=== PATIENT | female | born 1950 | race Caucasian/White ===

== ENCOUNTER → 2017-11-18 | Outpatient (CLI) | payer OTHER, MEDICAID ==
[~2017-11-18] MED LIST: AMITRIPTYLINE H25 M4 PO; BENICAR HCT 401 EAC1 PO; CEFTIN 250 MG250 MG PO; CELEBREX 200 M200 MG PO; CELEBREX PO; COUMADIN 2 MG TA2 M1 PO; COUMADIN 4 MG TA4 M1 PO; COUMADIN 5 MG TA5 M1 PO; COUMADIN PO; COZAAR 25 MG TA25 M1 PO; CYCLOBENZAPRINE10 MG PO; FLEXERIL PO; GABAPENTIN100 MG PO; HYDROCHLOROTHIA25 M1 PO; HYDROCHLOROTHIAZIDE PO; HYDROCODON-ACE1 EAC5 PO; IMITREX; IRON325 PO; LEVOTHYROXINE0.05 MG PO; LISINOPRIL10 MG PO; LOPRESSOR 50 MG50 M1 PO; LYRICA150 MG PO; METOPROLOL PO; METOPROLOL SUCC50 MG PO; MOBIC7.5 M1 PO; NABUMETONE 500500 M1 PO; NORCO 10-325 T1 EACH PO; PERCOCET 10-321 EACH PO; PRAVACHOL40 MG PO; PRILOSEC 20 MG20 MG PO; PROVENTIL HFA6.7 G1 INH; TIROSINT100 MCG PO; ZOLOFT100 MG PO
--- NOTE | 2017-11-20 08:15 | PAINCON ---
[address] [address] PAIN MANAGEMENT CONSULTATION Name: ELINOR GUNDERSON [facility] [id number] Admission: 11/18/17 Attend Phys: Davonte Martinez Discharge: Date of : 48 Report #: [id number] THIS REPORT FOR: //name// CC: Jose Rojo The patient is a pleasant 67-year-old female being treated for symptomatic lumbar radiculopathy secondary to spinal stenosis. She has done well with occasional epidural injections, she had a left L4-L5 transforaminal epidural injection at last visit with significant improvement of baseline pain. With ongoing radicular symptoms, I was concerned that there may be some surgical pathology, I ordered an MRI at last visit, unfortunately she wanted an open MRI and the copay of $360 was outside of the patient's comfort zone. We will try and get the MRI approved at [facility] where it should be covered a little better. PHYSICAL EXAMINATION: Shows a 5 feet 6 inches, 215 pounds female, BMI is 34.8 kg/m2. Blood pressure 150/70, pulse 72, respirations are 18. Rises from chair using armrest. She still has an antalgic gait, left leg L4 pattern with slight weakness to hip flexion and extension. ASSESSMENT: Symptomatic lumbar radiculopathy secondary to spinal stenosis. RECOMMENDATIONS: 1. Left L4-L5 transforaminal epidural injection today. 2. MRI of the lumbar spine. 3. Follow up with Neurosurgery. The patient was given contact information for same. PROCEDURE: Transforaminal epidural injection under fluoroscopy. PROCEDURE NOTE: After both written and informed consent was obtained including risk of spinal cord damage, infection, increased pain and paralysis, the patient agreed to proceed. The patient was taken to the fluoroscopy suite, placed in a prone position with appropriate abdominal bolstering. After sterile prep with ChloraPrep and sterile drape, a skin wheal with 1% Xylocaine was raised. A 22 gauge 4-1/2 inch epidural Tuohy needle was inserted. From an oblique approach into the posterior-superior aspect of the left L4-L5 neural foramen with continuous pressure on the glass syringe plunger for loss of resistance. Glass syringe was filled with 2 cc of 0.1 Xylocaine. The glass loss of resistance syringe was removed. A low volume extension tubing was connected, negative aspiration was accomplished for cerebrospinal fluid or blood. 1 mL of Omnipaque was injected which showed spread both within the epidural space and laterally along the nerve root. This was followed with 80 mg of triamcinolone plus 1 mL of 1.5% preservative-free Xylocaine. Needle was partially withdrawn, 0.5 mL of Xylocaine was injected to clear the needle and [place] [address] PAIN MANAGEMENT CONSULTATION Name: NEPTALIELINOR Panchito [facility] [id number] Admission: 11/18/17 Attend Phys: Davonte Martinez Discharge: Date of : 48 Report #: [id number] was cleansed, band-aid was applied. The patient was allowed to ambulate to the recovery room, discharged in good and stable condition. <ELECTRONICALLY SIGNED> By: Jeremias Rojo DO 11/20/17 0815 0844 1030[facility]gomerynakul Rojo DO /nt
== END | disposition home or self-care (01) ==
LOC: M.PC 02:06
DX: M48.061 Spinal stenosis, lumbar region without neurogenic claudication (principal); G89.29 Other chronic pain; Z98.890 Other specified postprocedural states; Z88.8 Allergy status to other drugs, medicaments and biological substances; Z79.891 Long term (current) use of opiate analgesic; Z79.899 Other long term (current) drug therapy

== ENCOUNTER → 2017-12-10 | Outpatient (CLI) | payer OTHER, MEDICAID | LOC: M.MRI 12-07 14:30 | DX: M54.16 Radiculopathy, lumbar region (principal); M51.35 Other intervertebral disc degeneration, thoracolumbar region; M51.26 Other intervertebral disc displacement, lumbar region; M47.897 Other spondylosis, lumbosacral region; M41.86 Other forms of scoliosis, lumbar region ==

== ENCOUNTER → 2018-01-20 | Outpatient (CLI) | payer OTHER, MEDICAID ==
--- NOTE | 2018-01-27 07:59 | PAINCON ---
[facility] [address] [place] [address] PAIN MANAGEMENT CONSULTATION Name: ELINOR GUNDERSON Room: [facility] SHADI Santos#: [id number] Admission: 01/20/18 Attend Phys: Davonte Martinez Discharge: Date of : 48 Report #: [id number] THIS REPORT FOR: //name// CC: Jose Rojo HISTORY OF PRESENT ILLNESS: The patient is a 67-year-old female, prior seen in the pain clinic on 11/18/2017. We did a left L4-L5 transforaminal epidural injection. The patient returns to clinic today noting that injection afforded some 60-70% relief for several weeks, pain has gradually begun to recur. She prior had a decompressive back surgery with Dr. Garcia. With ongoing pain in the left L3 radicular pattern, I did order an MRI of the lumbar spine. This was accomplished on 12/10/2017. I reviewed this with the patient today. Findings were compared to the prior 02/05/2015 study. It does note scoliosis with apex at L3-L4. L3-L4 does note kdfkildx-ic-xzcgep left L3 neural foraminal narrowing. L4-L5 notes a prior right L4 micro laminectomy. There is severe narrowing in the right lateral recess, ewaeruxx-rv-zfujfa bilateral neural foraminal narrowing at L4, though this does not correlate with significant L4 radicular symptoms. L5-S1 does show moderate facet arthropathy. ASSESSMENT: Symptomatic lumbar radiculopathy status post decompressive laminectomy. RECOMMENDATION: 1. We did discuss therapeutic options at length today. We will request authorization for a left L3-L4 transforaminal epidural injection today, again hoping to provide some incremental and only transient relief of symptoms. 2. We will have the patient follow up with Dr. Garcia at [facility] for consideration for further decompression at L3-L4. If she is not considered a surgical candidate, we did discuss spinal cord stimulator as possible therapeutic option. Fortunately, she has preserved strength, simply pain in L3 pattern, pain radiating to the left thigh. I think she would be an excellent candidate for spinal cord stimulator if surgery is not an option. We talked about high frequency stimulation with negligible paresthesia. We talked about risks, benefits, and possible therapeutic modality. 3. Follow up next week if we can get authorization for DESHAWN (Transforaminal @ L3/4) ASSESSMENT: Symptomatic lumbar radiculopathy status post decompressive laminectomy, spinal stenosis, neuropathic pain. <ELECTRONICALLY SIGNED> By: Jeremias Rojo DO 01/27/18 0759 1346 2048Jeremias Rojo DO /nt
== END ==
LOC: M.PC 04:56
DX: M54.16 Radiculopathy, lumbar region (principal)

== ENCOUNTER → 2018-01-27 | Outpatient (CLI) | payer OTHER, MEDICAID ==
--- NOTE | 2018-01-28 09:41 | PAINCON ---
[address] [address] PAIN MANAGEMENT CONSULTATION Name: ELINOR GUNDERSON [facility] [id number] Admission: 01/27/18 Attend Phys: Davonte Martinez Discharge: Date of : 48 Report #: [id number] THIS REPORT FOR: //name// CC: Jose Rojo The patient is a 67-year-old female being treated for lumbar radiculopathy status post decompressive laminectomy, ongoing neuropathic pain, left L3 pattern. She was seen on 01/20/2018. We sought authorization for left L3-L4 transforaminal epidural injection. I did review her MRI today. She has a scoliotic curve with apex at L3-L4 towards the right, significantly narrowing the L3-L4 neural foramen. ASSESSMENT: Symptomatic lumbar radiculopathy, status post decompressive laminectomy. PROCEDURE: Left L3-L4 transforaminal epidural injection under fluoroscopy. PROCEDURE NOTE: After both written and informed consent was obtained including risk of spinal cord damage, infection, increased pain and paralysis, the patient agreed to proceed. The patient was taken to the fluoroscopy suite, placed in a prone position with appropriate abdominal bolstering. After sterile prep with ChloraPrep and sterile drape, a skin wheal with 1% Xylocaine was raised. A 22 gauge 4-1/2 inch epidural Tuohy needle was inserted. From an oblique approach into the posterior-superior aspect of the left L3-L4 neural foramen with continuous pressure on the glass syringe plunger for loss of resistance. Glass syringe was filled with 2 cc of 0.1 Xylocaine. The glass loss of resistance syringe was removed. A low volume extension tubing was connected, negative aspiration was accomplished for cerebrospinal fluid or blood. 1 mL of Omnipaque was injected which showed spread both within the epidural space and laterally along the nerve root. This was followed with 80 mg of triamcinolone plus 1 mL of 1.5% preservative-free Xylocaine. Needle was partially withdrawn, 0.5 mL of Xylocaine was injected to clear the needle and the needle was removed. The area was cleansed, band-aid was applied. The patient was allowed to ambulate to the recovery room, discharged in good and stable condition. <ELECTRONICALLY SIGNED> By: Jeremias Rojo DO 01/28/18 0941 1230 1448Jeremias Rojo DO /nt
== END | disposition home or self-care (01) ==
LOC: M.PC 01:48
DX: M54.16 Radiculopathy, lumbar region (principal); Z98.890 Other specified postprocedural states; G89.29 Other chronic pain

== ENCOUNTER → 2018-05-12 | Outpatient (CLI) | payer OTHER, MEDICAID ==
--- NOTE | 2018-05-13 07:27 | PAINCON ---
[facility] [address] [place] [address] PAIN MANAGEMENT CONSULTATION Name: ELINOR GUNDERSON Room: [facility] SHADI Santos#: [id number] Admission: 05/12/18 Attend Phys: Davonte Martinez Discharge: Date of : 48 Report #: [id number] THIS REPORT FOR: //name// CC: Jose Rojo HISTORY OF PRESENT ILLNESS: The patient is a 67-year-old female, prior seen in the pain clinic in November and January of this year given left transforaminal epidural injections with ongoing improvement of baseline pain. The patient is tentatively scheduled to see Dr. Garcia for consideration for decompressive lumbar laminectomy. Unfortunately, in the interval, she went to the [facility], got bitten by a tick. Became quite systemically ill. She was diagnosed with Lyme disease. Had a 30-day course of antibiotics (dicyclomine (?)) ending 04/19/2018. She notes that the blood studies by verbal report showed no evidence of rickettsial disease. He returns to the Pain Clinic today noting radicular symptoms have recurred without antecedent trauma and overuse. Pain is in the low back bilateral, left slightly greater than right. Pain is radiating into the groin. She has decreased hip flexion strength. Positive straight leg raise bilaterally. ASSESSMENT: Symptomatic lumbar radiculopathy by clinical exam and history. The patient's MRI from November this year notes prior laminectomy at L4 (right microlaminectomy), goqifngc-mq-mvxjfv left neural foraminal narrowing at L3-L4. RECOMMENDATIONS: Lumbar epidural injection under fluoroscopy midline. Follow up with Neurosurgery (Dr. Garcia at [facility]). Follow up simply as needed with the Pain Clinic. PROCEDURE NOTE PROCEDURE: Lumbar epidural injection under fluoroscopy. DESCRIPTION OF PROCEDURE NOTE: After both written and informed consent to include risk of spinal cord damage, increased pain, weakness and dural puncture, the patient was taken to the fluoroscopy suite, placed in the prone position. After sterile prep and drape, a skin wheal with lidocaine was raised. A 22-gauge epidural Tuohy needle was inserted in the midline at L3-L4 with good loss to resistance. Negative aspiration for cerebrospinal fluid or blood was noted. Then 1 mL of Omnipaque under biplanar fluoroscopy showed good spread within the epidural space. This was followed with 80 mg of triamcinolone plus 1 mL of 1.5% preservative-free Xylocaine, 0.5 mL Xylocaine [place] [address] PAIN MANAGEMENT CONSULTATION Name: NEPTALIELINOR A Room: [facility] Tmo#: [id number] Admission: 05/12/18 Attend Phys: Davonte Martinez Discharge: Date of : 48 Report #: [id number] flush the needle; it was removed. The patient was monitored for an appropriate period of time and discharged in good and stable condition. <ELECTRONICALLY SIGNED> By: Jeremias Rojo DO 05/13/18 0727 1258 [facility] Hospitalnakul Rojo DO /nt
== END | disposition home or self-care (01) ==
LOC: M.PC 05:03
DX: M54.16 Radiculopathy, lumbar region (principal); G89.29 Other chronic pain; M48.061 Spinal stenosis, lumbar region without neurogenic claudication; Z98.890 Other specified postprocedural states; Z88.8 Allergy status to other drugs, medicaments and biological substances; Z79.899 Other long term (current) drug therapy; Z79.891 Long term (current) use of opiate analgesic

== ENCOUNTER → 2018-07-08 | Outpatient (CLI) | payer OTHER, MEDICAID ==
--- NOTE | 2018-07-14 16:41 | PAINCON ---
[address] [address] PAIN MANAGEMENT CONSULTATION Name: ELINOR GUNDERSON [facility] [id number] Admission: 07/08/18 Attend Phys: Claire Garay MD Discharge: Date of : 48 Report #: [id number] THIS REPORT FOR: //name// CC: Claire Persaud DATE OF SERVICE: 07/08/2018 CHIEF COMPLAINT: Pain in the low back area as well as in the joints and left hip. HISTORY OF PRESENT ILLNESS: The patient is a 68-year-old female who has been followed in the pain clinic by Dr. Jeremias Rojo. She has undergone epidural steroid injections because of pain and discomfort with lumbar radicular symptoms in the past. She has gleaned significant benefits from these. She has returned today and would like to proceed with another lumbar epidural steroid injection. She has had no complications from them in the past. Rates her pain as a 5/10. Finds that the oxycodone, ibuprofen, Flexeril and Lyrica are helpful. She has undergone epidural steroid injections without complications in the past, last one was performed in April 2018. The patient states that she is having pain that radiates into both legs. The pain is in the L5-S1 dermatomal distribution principally on the left today. She has had a laminectomy at L4 in the past. There have been some findings of some zllcvxee-ip-bzktdq neural foraminal narrowing at that level. ALLERGIES: NORGESIC FORTE, DURAVENT DA, AMOXICILLIN, CHLORPHENIRAMINE, DICLOFENAC, AUGMENTIN, LORACARBEF, LEVAQUIN, AND MICARDIS. CURRENT MEDICATIONS: Flexeril 10 mg, Synthroid 0.05 mg, Zestril 10 mg b.i.d., metoprolol 50 mg b.i.d., Prilosec 20 mg, Percocet 10/325 q. 4-6 hours, Lyrica 150 mg b.i.d., Zoloft 100 mg. PAST MEDICAL HISTORY: Asthma, hypertension, hypoglycemia, blood clot, coronary artery disease, myocardial infarct in 2008, DVT in 2002, scarlet fever, thyroid disease, stomach problems, peptic ulcer disease. PAST SURGICAL HISTORY: Stomach surgery in 2002, cholecystectomy in 1978, hysterectomy in 1970, sinus surgery in 1999, tonsils as a child. SOCIAL HISTORY: The patient used to work as a data operations manager. LABORATORY DATA: No new laboratory values are available. Last MRI dated 03/30/2014. 1. Asymmetric bulging of L2-L3, greater on the right with mild inferior neural foraminal narrowing seen. 2. Gfqo-kq-xevoomnf bulging of L3-L4 seen posterior spurring[place] [address] PAIN MANAGEMENT CONSULTATION Name: ELINOR GUNDERSON Panchito [facility] [id number] Admission: 07/08/18 Attend Phys: Claire Garay MD Discharge: Date of : 48 Report #: [id number] of the canal is borderline with bilateral neural foraminal narrowing, greater on the left with lateral spurring. 3. Mild bulging of L4-L5 with significant facet degenerative changes and ligamentum flavum hypertrophy with central canal narrowing to 0.9 cm. A large synovial cyst arises from the medial right facet measuring 1.5 cm vertical x 0.75 x 0.6 cm causing lateral recess and thecal sac deformity. 4. Mild bulging of L5-S1 is seen. Bilateral facet degenerative changes, which are fairly severe on the right. No significant neural foraminal seen. PAIN CLINIC ASSESSMENT: 1. History of osteoarthritis. The patient states she has not been treated for osteoarthritis. 2. Height 5 feet 6 inches, weight 219 pounds, BMI is 35. 3. VITAL SIGNS: Blood pressure 151/90, heart rate 77, respiratory rate 16, room air saturation 97%, temperature 98.0. 4. Pain score 5/7. 5. Fall risk. The patient has not fallen in the last 3 months. 6. Blood thinner. The patient is not on a blood thinning medication. 7. Hypertension. The patient is being treated for hypertension. 8. Opioid therapy greater than 6 weeks. The patient is receiving opioid medication on a regular basis. 9. Risk assessment tool. 10. Functional assessment tool. 11. Recreational drug use. The patient denies use of recreational drugs. 12. Tobacco: The patient denies use of tobacco. 13. Alcohol: The patient denies use of alcoholic beverages. PHYSICAL EXAMINATION: GENERAL: The patient is a well-developed, well-nourished white female. Appears her stated age. Slightly obese. She is alert and oriented x 3. Affect is appropriate. Speech is fluent. HEENT: Normocephalic, atraumatic. Extraocular muscles intact. Sclerae nonicteric. Mucous membranes are moist. NECK: Without significant JVD or adenopathy. LUNGS: Clear to auscultation. HEART: Regular rate. ABDOMEN: Nontender. MUSCULOSKELETAL: Without significant scoliosis, kyphosis or lordosis. Lower extremity, the patient has pain and discomfort, which is radiating down into her legs bilaterally. This is in the L5-S1 distribution on the right, which is most problematic today. IMPRESSION: 1. Lumbar radiculopathy, L5-S1 in the dermatomal distribution. 2. Asthma. 3. [place] [address] PAIN MANAGEMENT CONSULTATION Name: ELINOR GUNDERSON Room: [facility]#: [id number] Admission: 07/08/18 Attend Phys: Claire Garay MD Discharge: Date of : 46 Report #: [id number] 4. Hypoglycemia. 5. Blood clot. 6. Coronary artery disease. 7. Myocardial infarct in 2008. 8. DVT in 2002. 9. Scarlet fever. 10. Thyroid disease. 11. Stomach problems. 12. Peptic ulcer disease. RECOMMENDATIONS: We discussed treatment options with the patient. Risks and benefits of an epidural steroid injection were discussed. Possible complications of the procedure were reviewed. They could include but are not limited to infection, increased muscle soreness, headaches, bleeding, no improvement, worsening of pain, paralysis. The patient elects to proceed. PROCEDURE NOTE: The patient was taken the procedure room. She was then assisted in getting on the examination table. Her back was sterilely prepped with a Betadine solution. Bupivacaine 0.25% was infiltrated into this area. Fluoroscopy using anterior, posterior viewing were used to place the needle in the left paracentral area. A 17-gauge Tuohy with loss of resistance technique was used to gain access to the epidural space. There was no CSF, heme or paresthesia. A total of 80 mg Depo-Medrol, 40 mg triamcinolone and 2 mL of 0.25% bupivacaine was injected. The patient tolerated the procedure well. There were no complications. A total of about 10 seconds fluoroscopy time was used. The patient remained in the pain clinic for an appropriate amount of time. She will follow up in the future as needed. We would like to thank you for letting us participate in her care. We hope she continues to improve. <ELECTRONICALLY SIGNED> By: Claire Garay MD 07/14/18 1641 1631 2218N. Michele Garay MD /nt
== END ==
LOC: M.PC 03:23
DX: M54.16 Radiculopathy, lumbar region (principal); J45.909 Unspecified asthma, uncomplicated; I10 Essential (primary) hypertension; I25.10 Atherosclerotic heart disease of native coronary artery without angina pectoris; I21.3 ST elevation (STEMI) myocardial infarction of unspecified site; E07.9 Disorder of thyroid, unspecified; K27.9 Peptic ulcer, site unspecified, unspecified as acute or chronic, without hemorrhage or perforation; F11.20 Opioid dependence, uncomplicated; Z68.35 Body mass index [BMI] 35.0-35.9, adult; Z90.49 Acquired absence of other specified parts of digestive tract; Z98.890 Other specified postprocedural states; Z90.710 Acquired absence of both cervix and uterus; Z79.899 Other long term (current) drug therapy; Z88.8 Allergy status to other drugs, medicaments and biological substances

== ENCOUNTER → 2019-01-11 | Outpatient (CLI) | payer OTHER, MEDICAID ==
--- NOTE | ~2019-01-11 | PAINCON ---
[address] [address] PAIN MANAGEMENT CONSULTATION Name: ELINOR GUNDERSON [facility]: [facility] BIANCA Tom#: [id number] Admission: 01/11/19 Attend Phys: Claire Garay MD Discharge: Date of : 46 Report #: [id number] THIS REPORT FOR: //name// CC: Claire Persaud DATE OF SERVICE: 01/11/2019 CHIEF COMPLAINT: Low back pain and pain down into both legs. HISTORY: The patient is a 68-year-old female who has been seen in the Pain Clinic in the past because of problems of lumbar radicular pain. She has undergone epidural steroid injections in the past and gleaned benefits from these. She reports that she is having pain in her low back, which is radiating down into her legs bilaterally. It radiates down into the back side and involves her feet. She has undergone epidural steroid injections and gleaned benefits. She would like to proceed with an epidural steroid injection today. Pain is often been in the L5-S1 dermatomal distribution. She has had a laminectomy at L4 in the past. She has findings of mukostah-bq-mpiefp neural foraminal narrowing at that level. ALLERGIES: NORGESIC FORTE, DURAVENT DA, AMOXICILLIN, CHLORPHENIRAMINE, DICLOFENAC, AUGMENTIN, LORACARBEF, LEVAQUIN, AND MICARDIS. CURRENT MEDICATIONS: Flexeril 10 mg, Synthroid 0.05 mg, Zestril 10 mg b.i.d., metoprolol 50 mg b.i.d., Prilosec 20 mg, Percocet 10/325 q. 4-6 hours, Lyrica 150 mg b.i.d., Zoloft 100 mg. PAIN CLINIC ASSESSMENT/PQRS: 1. The patient has a history of osteoarthritis. She has not been treated for rheumatoid arthritis. 2. Height is 5 feet 6 inches, weight 224 pounds, BMI is 36.2. 3. Vital signs: Blood pressure 149/95, heart rate 78, respiratory rate 20, room air saturation 95%, temperature 97.7. 4. Pain intensity, 05/25. 5. Fall risk. The patient has not fallen in the last 3 months. 6. Blood thinner. The patient is not on a blood thinning medication. 7. Hypertension. The patient is being treated for hypertension. 8. Opioids greater than 6 weeks. The patient receives medications from the Pain Clinic on a regular basis. 9. Risk assessment tool, low for opioid use. 10. Recreational drug use. The patient denies use of recreational drugs. 11. Tobacco: The patient denies use of tobacco. 12. Alcohol: The patient denies use of alcoholic beverages. PHYSICAL EXAMINATION: [facility] [address] [place] [address] PAIN MANAGEMENT CONSULTATION Name: ELINOR GUNDERSON [facility] [id number] Admission: 01/11/19 Attend Phys: Claire Garay MD Discharge: Date of : 46 Report #: [id number] GENERAL: The patient is a well-developed, well-nourished white female. Appears her stated age. She is alert and oriented x 3, slightly obese. She is alert and oriented x 3. Speech is fluent. HEENT: Normocephalic, atraumatic. Extraocular eye muscles intact. Sclerae nonicteric. The patient is wearing glasses. Mucous membranes are moist. NECK: Without adenopathy or JVD. LUNGS: Clear to auscultation. HEART: Regular rate. ABDOMEN: Nontender. Bowel sounds present. MUSCULOSKELETAL: Without significant scoliosis, kyphosis or lordosis. The patient has pain and discomfort does radiate down into her legs bilaterally at the L5-S1 dermatomal distribution. IMPRESSION: 1. Lumbar radiculopathy, L5-S1 in the dermatomal distribution. 2. Asthma. 3. Hypertension. 4. Hypoglycemia. 5. Blood clot. 6. Coronary artery disease. 7. Myocardial infarct, 2008. 8. Deep venous thrombosis, 2002. 9. Scarlet fever. 10. Thyroid disease. 11. Stomach problems. 12. Peptic ulcer disease. RECOMMENDATIONS: We discussed treatment options with the patient. Risks and benefits of the procedure, which could include but are not limited to infection, worsening pain, no improvement in pain, bleeding, nerve damage, paralysis were discussed. The patient elects to proceed. PROCEDURE NOTE: The patient was taken to the procedure area. She was assisted in getting on the examination table. Her back was sterilely prepped with a Betadine solution. Fluoroscopy using anterior, posterior as well as lateral viewing were implemented. The patient's back was infiltrated at L5-S1 with 0.25% bupivacaine. A 17-gauge Tuohy at L5-S1 was used to gain access to the epidural area. There was no CSF, heme or paresthesia. Total of 80 mg Depo-Medrol, 40 mg triamcinolone and 2 mL of 0.25% bupivacaine was injected. A total of 6 seconds fluoroscopy time was used. The patient remained in the Pain Clinic for an appropriate amount of time. She will return in the future as needed. She will call if [place] [address] PAIN MANAGEMENT CONSULTATION Name: ELINOR GUNDERSON Room: [facility]#: [id number] Admission: 01/11/19 Attend Phys: Claire Garay MD Discharge: Date of : 46 Report #: [id number] We would like to thank you for letting us participate in her care. We hope she continues to improve. By: 2145 0219N. Michele Garay MD /nt
== END | disposition home or self-care (01) ==
LOC: M.PC 08:30
DX: M54.16 Radiculopathy, lumbar region (principal); G89.29 Other chronic pain; I10 Essential (primary) hypertension; J45.909 Unspecified asthma, uncomplicated; D64.9 Anemia, unspecified; I25.10 Atherosclerotic heart disease of native coronary artery without angina pectoris; I25.2 Old myocardial infarction; E07.9 Disorder of thyroid, unspecified; Z87.19 Personal history of other diseases of the digestive system; Z86.718 Personal history of other venous thrombosis and embolism; Z79.01 Long term (current) use of anticoagulants; Z98.890 Other specified postprocedural states; Z79.899 Other long term (current) drug therapy; Z88.8 Allergy status to other drugs, medicaments and biological substances; Z87.891 Personal history of nicotine dependence

== ENCOUNTER → 2019-03-24 | Outpatient (CLI) | payer OTHER, MEDICAID ==
--- NOTE | ~2019-03-24 | PAINCON ---
[address] [address] PAIN MANAGEMENT CONSULTATION Name: ELINOR GUNDERSON Room: [facility] Tom#: [id number] Admission: 03/24/19 Attend Phys: Claire Garay MD Discharge: Date of : 46 Report #: [id number] THIS REPORT FOR: //name// CC: Claire Persaud DATE OF SERVICE: 03/24/2019 CHIEF COMPLAINT: Return of low back pain and pain down into both legs. HISTORY OF PRESENT ILLNESS: The patient is a 68-year-old female who has been followed in the pain clinic because of history of lumbar radiculopathy. She has had lumbar problems for a number of years. Notes that her pain at this juncture, has returned. She has undergone epidural steroid injections. She has gleaned benefits from them. She has received 50% improvement. She has noticed that the pain has started to increase. This has been over the last few months. She has returned today with the hope of undergoing another epidural steroid injection to help decrease her pain and discomfort. She has had no complications. Rates her pain as a 7/10. He continues to use Flexeril, Lyrica, and ibuprofen to help control the pain. ALLERGIES: NORGESIC FORTE, DURAVENT DA, AMOXICILLIN, CHLORPHENIRAMINE, DICLOFENAC, AUGMENTIN, LORACARBEF, LEVAQUIN, AND MICARDIS. CURRENT MEDICATIONS: Flexeril 10 mg at bedtime, Synthroid ____, lisinopril 10 mg b.i.d., metoprolol 50 mg b.i.d., Prilosec 20 mg, has used oxycodone 10/325 in the past, has run out of the medication, Lyrica 150 mg b.i.d., and Zoloft 100 mg. PAIN CLINIC ASSESSMENT AND PQRS: 1. The patient is not being treated for rheumatoid arthritis. Does have some osteoarthritic changes. 2. Height 5 feet 6 inches, weight 222 pounds, BMI is 35.9. 3. Vital signs: Blood pressure 157/98, heart rate 67, respiratory rate 16, room air saturation 92%, and temperature 98.4. 4. Pain intensity 05/25. 5. Fall history: The patient has not fallen in the last 3 months. 6. Blood thinner. The patient is not on a blood thinning medication. 7. Hypertension. The patient is being treated for hypertension. 8. Opioid greater than 6 weeks. The patient received medications from the pain clinic. 9. Risk assessment tool, low for opioid use. 10. Recreational drug use. The patient denies use of recreational drugs. 11. Tobacco: The patient denies use of tobacco. 12. Alcohol: The patient [place] [address] PAIN MANAGEMENT CONSULTATION Name: ELINOR GUNDERSON Room: [facility]#: [id number] Admission: 03/24/19 Attend Phys: Claire Garay MD Discharge: Date of : 46 Report #: [id number] PHYSICAL EXAMINATION: GENERAL: The patient is a well-developed, well-nourished white female. Appears her stated age. She is alert and oriented x 3. Her affect is appropriate. Speech is fluent. She is slightly obese. HEENT: Normocephalic, atraumatic. Extraocular eye muscles intact. Sclerae nonicteric. Mucous membranes intact. The patient is wearing glasses. NECK: Without adenopathy or JVD. LUNGS: Clear to auscultation. HEART: Regular rate. ABDOMEN: Nontender. Bowel sounds present. MUSCULOSKELETAL: Without significant scoliosis, kyphosis, or lordosis. The patient has pain and discomfort that is radiating down into her legs bilaterally in the L5-S1 dermatomal distribution. IMPRESSION: 1. Lumbar radiculopathy, L5-S1 in dermatomal distribution bilaterally. 2. Asthma. 3. Hypertension. 4. Hypoglycemia. 5. Blood clot. 6. Coronary artery disease. 7. Myocardial infarct in 2008. 8. Deep venous thrombosis in 2002. 9. Scarlet fever. 10. Thyroid disease. 11. Stomach problems. 12. Peptic ulcer disease. RECOMMENDATIONS: We discussed treatment options with the patient. Risks and benefits of an epidural steroid injection were discussed. They include but are not limited to infection, worsening pain, no improvement in pain, spinal headache, nerve damage and the patient elects to proceed. PROCEDURE NOTE: The patient was taken to the procedure area. She was then assisted in getting on the examination table. A pillow was placed under the abdomen to bolster an improved positioning. Fluoroscopy using anterior, posterior as well as lateral viewing were implemented. The patient's back had been sterilely prepped with Betadine. A 0.25% bupivacaine was infiltrated using a 25-gauge needle using a midline approach. A 17-gauge Tuohy with loss of resistance technique was used to gain access to the epidural space. There was no CSF, heme, or paresthesia. A total of 80 mg Depo-Medrol, 40 mg triamcinolone and 2 mL of 0.25% bupivacaine was injected. The patient tolerated the procedure well. There were no complications. A total of 12 seconds fluoroscopy time was used. The patient will follow up in the future as needed. [address] [address] PAIN MANAGEMENT CONSULTATION Name: NEPTALIELINOR [id number] Admission: 03/24/19 Attend Phys: Claire Garay MD Discharge: Date of : 48 Report #: [id number] We would like to thank you for letting us participate in her care. We hope she continues to improve. By: [id number]. Michele Garay MD /nt
== END | disposition home or self-care (01) ==
LOC: M.PC 05:09
DX: M54.16 Radiculopathy, lumbar region (principal); G89.29 Other chronic pain; I10 Essential (primary) hypertension; J45.909 Unspecified asthma, uncomplicated; I25.10 Atherosclerotic heart disease of native coronary artery without angina pectoris; I25.2 Old myocardial infarction; E07.9 Disorder of thyroid, unspecified; K27.9 Peptic ulcer, site unspecified, unspecified as acute or chronic, without hemorrhage or perforation; Z86.718 Personal history of other venous thrombosis and embolism; Z79.01 Long term (current) use of anticoagulants; Z98.890 Other specified postprocedural states; Z79.899 Other long term (current) drug therapy; Z88.8 Allergy status to other drugs, medicaments and biological substances; Z79.891 Long term (current) use of opiate analgesic

== ENCOUNTER → 2019-05-12 | Outpatient (CLI) | payer OTHER, MEDICAID ==
[~2019-05-12] MED LIST changes: +OXYCODONE HCL10 MG PO; +VITAMIN D50000 UNIT PO; +VOLTAREN GEL 1100 G2 TOP
--- NOTE | 2019-05-18 14:27 | PAINCON ---
[address] [address] PAIN MANAGEMENT CONSULTATION Name: ELINOR GUNDERSON Room: [facility] Santos#: [id number] Admission: 05/12/19 Attend Phys: Claire Garay MD Discharge: Date of : 46 Report #: [id number] THIS REPORT FOR: //name// CC: Claire Persaud DATE OF SERVICE: 05/12/2019 CHIEF COMPLAINT: "Low back pain with pain that is going down into my legs." HISTORY: The patient is a 68-year-old female who has been seen in the pain clinic in the past because of lumbar radiculopathy. She returns today indicating that she has noted some increased back discomfort. She is having pain that is radiating down the back of her legs bilaterally, left side is more problematic than the right. She also has soreness on the lateral portion of her left thigh. She states it has been there and sore for a number of months to a year. Pressure in this area causes some discomfort. She has not noticed any significant change in its location. It is on the lateral portion. She can take her finger and press it directly on it. It does not seem to follow a pattern down in her leg, it is just right on the lateral portion of her thigh. Does note that use of medications such as nonsteroidal anti-inflammatory medications may be helpful in decreasing the pain and discomfort. Overall, she feels her pain is about 50% improved with her current medical regimen. She would like to proceed with an epidural steroid injection to help quell the pain that she is experiencing. ALLERGIES: NORGESIC FORTE, DURAVENT DA, AMOXICILLIN, CHLORPHENIRAMINE, DICLOFENAC, AUGMENTIN, LORACARBEF, LEVAQUIN, AND MICARDIS. CURRENT MEDICATIONS: 1. Flexeril 10 mg at bedtime. 2. Voltaren gel for upper extremities 4 times daily. 3. Synthroid 0.05 mg. 4. Zestril 10 mg b.i.d. 5. Metoprolol 50 mg b.i.d. 6. Nabumetone 500 mg t.i.d. 7. Prilosec 20 mg. 8. Oxycodone IR 10 mg every 4-6 hours, 120 tablets. 9. Lyrica 150 mg b.i.d. 10. Zoloft 100 mg. PAIN CLINIC ASSESSMENT/PQRS: 1. The patient is not being treated for rheumatoid arthritis. She does have some osteoarthritic changes. 2. Height 5 feet 6 inches, weight 227 pounds, BMI is 37. 3. Vital Signs: Blood pressure 116/60, heart rate 88, respiratory rate 16, [facility] [address] [place] [address] PAIN MANAGEMENT CONSULTATION Name: ELINOR GUNDERSON Room: [facility]#: [id number] Admission: 05/12/19 Attend Phys: Claire Garay MD Discharge: Date of : 46 Report #: [id number] room air saturation 92%, and temperature 97.4. 4. Pain intensity 7/10. 5. Fall history: The patient has not fallen in the last 3 months. 6. Blood thinner. The patient is not on a blood thinning medication. 7. Hypertension. The patient is being treated for hypertension. 8. Opioids greater than 6 weeks. The [facility]. 9. Risk assessment tool, low for opioid use. 10. Recreational drug use. The patient denies use of recreational drugs. 11. Tobacco: The patient denies use of tobacco. 12. Alcohol: The patient denies use of alcoholic beverages. PHYSICAL EXAMINATION: GENERAL: The patient is a well-developed, well-nourished white female. Appears her stated age. She is alert and oriented x 3. Her affect is appropriate. Speech is fluent. HEENT: Normocephalic, atraumatic. Extraocular eye muscles intact. The patient is slightly obese. NECK: Without adenopathy or JVD. LUNGS: Clear to auscultation. HEART: Regular rate. ABDOMEN: Nontender. Bowel sounds present. MUSCULOSKELETAL: Without significant scoliosis, kyphosis or lordosis. The patient has pain and discomfort in the L5-S1 dermatomal distribution with pain radiating down into both the left and the right leg, left side more problematic. IMPRESSION: 1. Lumbar radiculopathy with L5-S1 dermatomal distribution with positive straight leg raise. 2. Asthma. 3. Hypertension. 4. Hypoglycemia. 5. Blood clots. 6. Coronary artery disease. 7. Myocardial infarct 2008. 8. Deep venous thrombosis in 2002. 9. Scarlet fever. 10. Thyroid disease. 11. Stomach problems. 12. Peptic ulcer disease. RECOMMENDATIONS: We discussed treatment options with the patient. Risks and benefits of the epidural steroid injection were again discussed. Possible complications of the procedure, which could include but are not limited to infection, worsening of pain, no improvement in pain, nerve damage with paralysis were discussed and the [place] [address] PAIN MANAGEMENT CONSULTATION Name: ELINOR GUNDERSON Room: [facility] Santos#: [id number] Admission: 05/12/19 Attend Phys: Claire Garay MD Discharge: Date of : 46 Report #: [id number] PROCEDURE NOTE: The patient was taken to the procedure area. She was then assisted in getting on the examination table. The patient was lying on her right lateral decubitus position. The left leg with up on the upside. Palpation in the medial portion of her thigh did not reveal any significant mass. The patient could with one finger press on the left lateral thigh area and causes a reproduction of her pain. This pain does not seem to be dermatomal nor does it follow a dermatomal pattern. Pressure in the area with the patient directed about midthigh on the left outer thigh does reproduce the discomfort. Does not appear to be a lipoma, which is well defined. The patient was then placed in the prone position. Fluoroscopy using anterior, posterior as well as lateral viewing were implemented. Her back was sterilely prepped at the L5-S1 area with Betadine. A 0.25% bupivacaine was infiltrated. A 17-gauge Tuohy with loss of resistance technique at the L5-S1 area was placed. Aspiration was negative. A total of 80 mg Depo-Medrol, 40 mg triamcinolone, and 2 mL of 0.25% bupivacaine was infiltrated. The patient tolerated the procedure well. There were no complications. She remained in the Pain Clinic for an appropriate amount of time. A total of 16 seconds fluoroscopy time was used. The patient's pain score was 5/10 at the time of discharge. She will follow up in the future as needed. We would like to thank you for letting us participate in her care. We hope she continues to improve. <ELECTRONICALLY SIGNED> By: Claire Garay MD 05/18/19 1427 [id number]. Michele Garay MD /nt
== END | disposition home or self-care (01) ==
LOC: M.PC 05:00
DX: M54.16 Radiculopathy, lumbar region (principal); G89.29 Other chronic pain; I10 Essential (primary) hypertension; J45.909 Unspecified asthma, uncomplicated; I25.10 Atherosclerotic heart disease of native coronary artery without angina pectoris; I25.2 Old myocardial infarction; E07.9 Disorder of thyroid, unspecified; K27.9 Peptic ulcer, site unspecified, unspecified as acute or chronic, without hemorrhage or perforation; Z86.718 Personal history of other venous thrombosis and embolism; Z79.01 Long term (current) use of anticoagulants; Z79.891 Long term (current) use of opiate analgesic; Z88.8 Allergy status to other drugs, medicaments and biological substances; Z98.890 Other specified postprocedural states; Z79.899 Other long term (current) drug therapy

== ENCOUNTER → 2019-06-30 | Outpatient (CLI) | payer OTHER, MEDICAID ==
--- NOTE | ~2019-06-30 | PAINCON ---
[address] [address] PAIN MANAGEMENT CONSULTATION Name: ELINOR GUNDERSON Room: [facility] Santos#: [id number] Admission: 06/30/19 Attend Phys: Claire Garay MD Discharge: Date of : 46 Report #: [id number] THIS REPORT FOR: //name// CC: Claire Persaud DATE OF SERVICE: 06/30/2019 CHIEF COMPLAINT: Low back pain. HISTORY: The patient is a 69-year-old female who has been seen in the pain clinic because of lumbar radiculopathy. She has undergone epidural steroid injections in the past. She has found that these have been helpful. She returns today with a hope of undergoing an epidural steroid injection. The pain in the lower back continues to radiate down into her left leg. Last epidural steroid injection was beneficial and she has returned today with hopes of undergoing another injection. She has had no complications from the last injection. She feels that oxycodone is helpful with the pain as well. She has been using the Voltaren gel to the affected areas 4 times daily. Pain is most problematic in her legs, both left and right. Rates her pain as an 8/10 at this juncture. ALLERGIES: NORGESIC FORTE, DURA-VENT DA, AMOXICILLIN, CHLORPHENIRAMINE, DICLOFENAC, AUGMENTIN, LORACARBEF, LEVAQUIN, and MICARDIS. CURRENT MEDICATIONS: Flexeril 10 mg at bedtime, Voltaren gel upper extremities 4 times daily, Synthroid 0.05 mg, Zestril 10 mg b.i.d., metoprolol 50 mg b.i.d., nabumetone 500 mg, Prilosec 20 mg, OxyIR 10 mg q.4 hours, Lyrica 150 mg b.i.d., and Zoloft 100 mg. PAIN CLINIC ASSESSMENT/PQRS: 1. The patient is not being treated for rheumatoid arthritis. She does have some osteoarthritic changes. Height 5 feet 6 inches, weight 227 pounds, and BMI is 36.9. 2. Vital signs: Blood pressure 155/72, heart rate 80, respiratory rate 16, room air saturation 92%, temperature 98.3. 3. Pain intensity 8/10. 4. Fall history: The patient has not fallen in the last 3 months. 5. Blood thinner. The patient is not on a blood thinning medication. 6. Hypertension. The patient is being treated for hypertension. 7. Opioids greater than 6 weeks. The patient [facility]. 8. Risk assessment tool, low for opioids. 9. Functional assessment tool. 10. Recreational drug use. The patient denies use of [place] [address] PAIN MANAGEMENT CONSULTATION Name: ELINOR GUNDERSON Room: [facility]#: [id number] Admission: 06/30/19 Attend Phys: Claire Garay MD Discharge: Date of : 48 Report #: [id number] 11. Tobacco: The patient denies use of tobacco. 12. Alcohol: The patient denies frequent use of alcoholic beverages. PHYSICAL EXAMINATION: GENERAL: The patient is a well-developed, well-nourished white female. Appears her stated age. She is alert and oriented x 3. Her affect is appropriate. Speech is fluent. HEENT: Normocephalic, atraumatic. Extraocular eye muscles intact. Sclerae nonicteric. Mucous membranes are moist. The patient is slightly obese. NECK: Without adenopathy or JVD. LUNGS: Clear to auscultation. EXTREMITIES: Upper extremity, the patient has pain and discomfort in the upper arm area. Muscle strength 5-/5 for the major muscle groups. HEART: Regular rate. ABDOMEN: Nontender. Bowel sounds present. The patient without significant scoliosis, kyphosis or lordosis. The patient has pain and discomfort in the L5-S1 dermatomal distribution, left as well as right are affected. Positive straight leg raise. IMPRESSION: 1. Lumbar radiculopathy with L5-S1 dermatomal distribution with positive straight leg raise. 2. Asthma. 3. Hypertension. 4. Hypoglycemia. 5. Blood clots. 6. Coronary artery disease. 7. Myocardial infarct 2008. 8. Deep venous thrombosis 2002. 9. Scarlet fever. 10. Thyroid disease. 11. Stomach problems. 12. Peptic ulcer disease. RECOMMENDATIONS: We discussed treatment options with the patient. Risks and benefits of an epidural steroid injection were discussed. Possible complications of the procedure were reviewed. The patient's medication of oxycodone was rewritten. We explained to the patient the need for keeping her medications in a guarded area. She states that she has been using the opioid medications for quite a number of years. They have not been problematic. She states that she is taking them as prescribed. She is aware that long-term use of these medications can become less effective because of development of tolerance. A script for her medications has been written, 120 tablets of OxyIR have been provided. PROCEDURE NOTE: We have discussed the risks and benefits [place] [address] PAIN MANAGEMENT CONSULTATION Name: ELINOR GUNDERSON Room: [facility]#: [id number] Admission: 06/30/19 Attend Phys: Claire Garay MD Discharge: Date of : 46 Report #: [id number] the patient. She elects to proceed. PROCEDURE NOTE: The patient was taken to the procedure area. She was then assisted in getting on the examination table. Her back was sterilely prepped with a Betadine solution. A 0.25% bupivacaine was used to identify the midline L5-S1 area. This area was infiltrated with 0.25% bupivacaine. A 17-gauge Tuohy with loss of resistance technique was used to gain access to the epidural space. There was no CSF, heme or paresthesia. Total of 80 mg Depo-Medrol, 40 mg triamcinolone and 2 mL of 0.25% bupivacaine was injected. The patient tolerated the procedure well. There were no complications. She remained in the Pain Clinic for an appropriate amount of time. We would like to thank you for letting us participate in her care. We hope she continues to improve. By: [id number]. Michele Garay MD /nt
== END | disposition home or self-care (01) ==
LOC: M.PC 04:48
DX: M54.16 Radiculopathy, lumbar region (principal); G89.29 Other chronic pain; I10 Essential (primary) hypertension; I25.10 Atherosclerotic heart disease of native coronary artery without angina pectoris; J45.909 Unspecified asthma, uncomplicated; I25.2 Old myocardial infarction; E07.9 Disorder of thyroid, unspecified; D64.9 Anemia, unspecified; Z98.890 Other specified postprocedural states; Z79.899 Other long term (current) drug therapy; Z87.19 Personal history of other diseases of the digestive system; Z79.01 Long term (current) use of anticoagulants; Z86.718 Personal history of other venous thrombosis and embolism; Z88.8 Allergy status to other drugs, medicaments and biological substances

== ENCOUNTER → 2019-07-28 | Outpatient (CLI) | payer OTHER, MEDICAID ==
--- NOTE | ~2019-07-28 | PAINCON ---
[address] [address] PAIN MANAGEMENT CONSULTATION Name: ELINOR GUNDERSON Room: [facility] Santos#: [id number] Admission: 07/28/19 Attend Phys: Claire Garay MD Discharge: Date of : 46 Report #: [id number] THIS REPORT FOR: //name// CC: Claire Persaud DATE OF SERVICE: 07/28/2019 CHIEF COMPLAINT: Low back pain. HISTORY: The patient is a 69-year-old female who has been seen in the pain clinic because of chronic pain involving her low back area. She has undergone epidural steroid injections and gleaned benefits from them. She returns today indicating that her pain continues to be problematic. She rates it as a 7/10. She noted an increase in her pain. States that she had to take 2 of the oxycodone pills to help decrease her pain last evening. She had a difficult night sleeping. She would like to undergo an epidural steroid injection. She has had no complication from the procedures in the past. She does have 2 sisters and a [id number] who has been using the CBD oil. They found that to be quite efficacious in decreasing her pain and discomfort. She feels that this medication might be helpful for her given that they are sisters and that they are receiving benefits. She would like to give this medication a try. She is having some pain and discomfort in the right hip area. Feels that there is some discomfort in the area of her hip and radiating into her right groin area. Does not notice a whole lot of discomfort with rotation and movement of her hip. Feels that there is a toothache type of discomfort. She has "rubbed it down with liniment without significant benefit. ALLERGIES: DURAGESIC FORTE, DURAVENT DA, AMOXICILLIN, CHLORPHENIRAMINE, DICLOFENAC, AUGMENTIN, LORACARBEF, LEVAQUIN, MICARDIS. CURRENT MEDICATIONS: Flexeril 10 mg at bedtime, Voltaren gel to the upper extremity 4 times daily, Synthroid 0.05 mg, Zanaflex, Zestril 10 mg b.i.d., metoprolol 50 mg b.i.d., nabumetone 500 mg, Prilosec 20 mg, OxyIR 10 mg q.4 hours, Lyrica 150 mg b.i.d., Zoloft 100 mg. PAIN CLINIC ASSESSMENT AND PQRS: 1. The patient is not being treated for rheumatoid arthritis. She does have some osteoarthritic changes involving her back and complains of hip discomfort. 2. The patient is not being treated for rheumatoid arthritis. 3. Height 5 feet 6 inches, weight 225 pounds, BMI is 36.3. 4. Blood pressure 146/74, heart rate 64, respiratory rate 16, room air saturation 94%, temperature 97.9. 5. Pain intensity is 7/10. 6. Fall history. The patient has not fallen in the last 3 months. 7. Blood thinner. The patient is not on [place] [address] PAIN MANAGEMENT CONSULTATION Name: ELINOR GUNDERSON Room: [facility] Santos#: [id number] Admission: 07/28/19 Attend Phys: Claire Garay MD Discharge: Date of : 46 Report #: [id number] 8. Hypertension. The patient is being treated for hypertension. 9. Opioids greater than 6 weeks. The patient [facility]. 10. Risk assessment tool, low for opioid use. 11. Functional assessment tool. 12. Recreational drug use, the patient denies use of recreational drugs. 13. Tobacco: The patient denies use of tobacco. 14. Alcohol: The patient denies frequent use of alcoholic beverages. PHYSICAL EXAMINATION: GENERAL: The patient is a well-developed, well-nourished, white female. Appears her stated age. She is alert and oriented x 3. Her affect is appropriate. Speech is fluent. HEENT: Normocephalic, atraumatic. Extraocular eye muscles intact. The patient is wearing glasses. NECK: Without adenopathy or JVD. LUNGS: Clear to auscultation. EXTREMITIES: Upper extremity muscle strength judged to be 5/5 for the major muscle groups in the upper extremity. HEART: Regular. ABDOMEN: Nontender. Bowel sounds present. MUSCULOSKELETAL: The patient without significant scoliosis, kyphosis, or lordosis. The patient has pain and discomfort in the L5-S1 dermatomal distribution. Complains of pain that is radiating down the posterior portion of her right leg into the lower leg. Has positive straight leg raise. Has some increased discomfort in the right groin area. IMPRESSION: 1. History of lumbar radiculopathy at the L5-S1 dermatomal distribution. 2. Asthma. 3. Hypertension. 4. Hypoglycemia. 5. Blood clots. 6. Coronary artery disease. 7. Myocardial infarction in 2008. 8. Deep venous thrombosis in 2002. 9. Scarlet fever. 10. Thyroid disease. 11. Stomach problems. 12. Peptic ulcer disease. RECOMMENDATIONS: We discussed treatment options with the patient. At this juncture, we will continue with her medications. She feels the Voltaren gel to the upper extremities was quite helpful. She would like to continue with that medication. She feels that the oxycodone 10 mg 1 p.o. q.4-6 hours continues to be beneficial as well. She would like to consider [place] [address] PAIN MANAGEMENT CONSULTATION Name: ELINOR GUNDERSON [facility] [id number] Admission: 07/28/19 Attend Phys: Claire Garay MD Discharge: Date of : 46 Report #: [id number] today. We reviewed her chart and it appears that the earliest we can do this would be in September. The patient will follow up in 1 month. A script for her opioid medications of oxycodone has been rewritten. The patient continues to use the opioid medication to help control her pain. She is considering whether or not to try CBD oil. Her sister and [id number] finds this medications has been quite efficacious. She will call us if she has any concerns. We would like to thank you for letting us participate in her care. We hope she continues to improve. By: [id number]. Michele Garay MD /FARHAD
== END ==
LOC: M.PC 05:24
DX: M54.17 Radiculopathy, lumbosacral region (principal); J45.909 Unspecified asthma, uncomplicated; I10 Essential (primary) hypertension; I25.10 Atherosclerotic heart disease of native coronary artery without angina pectoris; Z79.891 Long term (current) use of opiate analgesic; Z79.899 Other long term (current) drug therapy

== ENCOUNTER → 2019-08-25 | Outpatient (CLI) | payer OTHER, MEDICAID ==
[~2019-08-25] MED LIST changes: +MEDROLDOSEPACK PO
--- NOTE | 2019-09-07 09:09 | PAINCON ---
[place] [address] PAIN MANAGEMENT CONSULTATION Name: NEPTALIELINORTOMAS ZARATE [id number] Admission: 08/25/19 Attend Phys: Claire Garay MD Discharge: Date of : 46 Report #: [id number] THIS REPORT FOR: //name// CC: Claire Persaud DATE OF SERVICE: 08/25/2019 CHIEF COMPLAINT: Pain in the low back area. HISTORY: The patient is a 69-year-old female who has been followed in the pain clinic. As you recall, she has a history of back problems. She has undergone epidural steroid injections in the past. These have been helpful. She has had back pain, which has been problematic for a number of years. She has returned today for renewal of her medications. She would like to undergo an epidural steroid injection at the next visit. She feels that her Flexeril, Voltaren gel, oxycodone and Lyrica were beneficial. She has had no complications with these medications. Prolonged walking, standing, climbing stairs, lifting and bending are problems. ALLERGIES: DURAGESIC FORTE, DURAVENT-DA, AMOXICILLIN, CHLORPHENIRAMINE, DICLOFENAC, AUGMENTIN, LORACARBEF, LEVAQUIN, MICARDIS. CURRENT MEDICATIONS: Flexeril 10 mg at bedtime, Voltaren gel to the upper extremity 4 times daily, Synthroid 0.05 mg, Zanaflex, Zestril 10 mg b.i.d., metoprolol 50 mg b.i.d., nabumetone 500 mg, Prilosec 20 mg, OxyIR 10 mg q. 4 hours, Lyrica 150 mg b.i.d., and Zoloft 100 mg. PAIN CLINIC ASSESSMENT AND PQRS: 1. The patient is not being treated for rheumatoid arthritis. She does have some osteoarthritic changes involving her back. Complains of pain and discomfort in her hip. 2. Height 5 feet 6 inches, weight 225 pounds, BMI is 36.6. 3. Vital Signs: Blood pressure 132/59, heart rate 88, respiratory rate 16, room air saturation 93% and temperature 98.7. 4. Pain intensity 03/25. 5. Fall history: The patient has not fallen in the last 3 months. 6. Blood thinner. The patient is not on a blood thinning medication. 7. Hypertension. The patient is being treated for hypertension. 8. Opioids greater than 6 weeks. The patient receives medication from one source, the pain clinic. 9. Risk assessment tool, low for opioid use. 10. Functional assessment tool. 11. Recreational drug use. The patient denies use of recreational drugs. 12. Tobacco: The patient denies use of tobacco. 13. Alcohol. The patient denies frequent [place] [address] PAIN MANAGEMENT CONSULTATION Name: ELINOR GUNDERSON [id number] Admission: 08/25/19 Attend Phys: Claire Garay MD Discharge: Date of : 46 Report #: [id number] PHYSICAL EXAMINATION: GENERAL: The patient is a well-developed, well-nourished white female. She appears her stated age. She is alert and oriented x 3. Her affect is appropriate. Speech is fluent. HEENT: Normocephalic, atraumatic. Extraocular eye muscles intact. Sclerae nonicteric. Mucous membranes are moist. NECK: Without adenopathy or JVD. MUSCULOSKELETAL: The patient is without significant scoliosis, kyphosis or lordosis. The patient has some pain and discomfort in the L5-S1 dermatomal distribution. She has pain that radiates down the posterior portion of her leg with numbness and tingling. There is a positive straight leg raise on the right side. She has some pain and discomfort in the right groin area as well. IMPRESSION: 1. History of lumbar radiculopathy at the L5-S1 dermatomal distribution. 2. Asthma. 3. Hypertension. 4. Hypoglycemia. 5. History of blood clots. 6. Coronary artery disease. 7. Myocardial infarction in 2008. 8. Deep venous thrombosis 2002. 9. Scarlet fever. 10. Thyroid disease. 11. Stomach problems. 12. Peptic ulcer disease. RECOMMENDATIONS: We discussed treatment options with the patient. Risks and benefits of opioid medications were discussed. The patient does feel that the Voltaren gel continues to be helpful. She would like to continue with that medications. She feels that the oxycodone 10 mg every 4-6 hours is beneficial as well. She has had no complications with the medications. She would like to proceed with an epidural steroid injection at the next visit in 09/2019. She has been provided a script for her medications. She will continue with oxycodone immediate release 10 mg one p.o. q. 4-6 hours, total of 120 tablets, diclofenac Voltaren gel to the upper extremity 2 g q.i.d. She will call us if she has any concerns with her medications. We will proceed with an epidural steroid injection at the next visit. We will continue with helping control her pain using a complex medical management with opioids. <ELECTRONICALLY SIGNED> By: Claire Garay MD 09/07/19 0909 [id number] 1550N. Michele Garay MD /nt
== END ==
LOC: M.PC 06:00
DX: M54.17 Radiculopathy, lumbosacral region (principal); I10 Essential (primary) hypertension; J45.909 Unspecified asthma, uncomplicated; I25.10 Atherosclerotic heart disease of native coronary artery without angina pectoris; I25.2 Old myocardial infarction; Z79.899 Other long term (current) drug therapy; Z79.891 Long term (current) use of opiate analgesic; Z86.718 Personal history of other venous thrombosis and embolism; Z87.11 Personal history of peptic ulcer disease; Z88.1 Allergy status to other antibiotic agents; Z88.8 Allergy status to other drugs, medicaments and biological substances

== ENCOUNTER 2019-09-08 10:30 | Emergency (ER) | payer OTHER, MEDICAID ==
[~2019-09-08] VITALS: Ht 167.6 cm; Wt 99.8 kg
[~2019-09-08 10:30] MED LIST changes: -MEDROLDOSEPACK PO
[2019-09-08 11:12] LABS: URINE BILIRUBIN NEGATIVE (Negative); URINE BLOOD NEGATIVE (Negative); URINE CLARITY CLEAR; URINE COLOR YELLOW; URINE GLUCOSE-RANDOM NEGATIVE (Negative); URINE KETONES NEGATIVE (Negative); URINE LEUKOCYTES-REFLEX NEGATIVE (Negative); URINE NITRITE-REFLEX NEGATIVE (Negative); URINE PROTEIN NEGATIVE (Negative); URINE SPECIFIC GRAVITY <= 1.005 (1.005-1.030); URINE UROBILINOGEN 0.2 E.U./dl (0.2-1.0)
[2019-09-08 12:00] LABS: ABSOLUTE BASOPHILS 0.1 thou/uL (0.0-0.2); ABSOLUTE EOSINOPHILS 0.4 thou/uL (0.0-0.7); ABSOLUTE LYMPHOCYTES 2.3 thou/uL (0.8-5.3); ABSOLUTE MONOCYTES 1.1 thou/uL (0.0-1.2); ABSOLUTE NEUTROPHILS 6.2 thou/uL (1.6-8.1); EOSINOPHILS 4.1 %; HEMATOCRIT 34.8 % (37.0-47.0); HEMOGLOBIN 11.5 gm/dL (12.0-15.0); LYMPHOCYTES 22.5 %; MCH 29.7 pg (26.0-34.0); MCHC 33.2 g/dL (28.0-37.0); MCV 89.5 fL (80.0-100.0); MONOCYTES 10.7 %; MPV 10.3 fl. (7.2-11.1); NUCLEATED RBCS 0 /100WBC; PLATELET COUNT* 207 thou/uL (150-400); POLYS 61.7 %; RBC 3.89 mil/uL (4.20-5.00); RDW-CV 15.9 % (10.5-14.5); WBC 10.1 thou/uL (4.0-11.0)
[2019-09-08 12:15] LABS: CALCIUM 9.6 mg/dL (8.5-10.1); CREATININE 1.1 mg/dL (0.6-1.3); POTASSIUM 4.2 mmol/L (3.5-5.1)
[2019-09-08 12:18] LABS: APTT 23.7 Seconds (25.0-31.3); PROTIME 9.9 Seconds (9.20-11.50)
[2019-09-08 12:26] LABS: ALBUMIN 3.4 g/dL (3.4-5.0); TOTAL BILIRUBIN 0.2 mg/dL (<0.1-1.0); TOTAL PROTEIN 6.9 g/dL (6.4-8.2)
[2019-09-08 12:41] LABS: BE -5.2 mmol/L (-2 to +3); PO2 97.5 mmHg (75.0-100.0)
[2019-09-08] MEDS ORDERED: MEDROLDOSEPACK PO (15:22)
[2019-09-08 15:38] VITALS: BP 168/89
--- NOTE | 2019-09-08 16:56 | EKG ---
[place] [address] ELECTROCARDIOGRAM REPORT Name: NEPTALIELINOR ELLIOT Room: [facility]#: [id number] Admission: 09/08/19 Attend Phys: Discharge: 09/08/19 Date of : 46 Report #: [id number] THIS REPORT FOR: //name// [facility] ED Test Date: 2019-09-08 Test Time: 10:36:31 Pat Name: ELINOR GUNDERSON Department: Room: Gender: F Sales Support Associate: [place] : 1950 Requested By: Aroldo Ashford Order Number: [id number] MD: Gautam Treviño Measurements Intervals [place] Rate: 73 P: 62 IA: 195 QRS: 17 QRSD: 82 T: 31 QT: 374 QTc: 413 Interpretive Statements Sinus rhythm Premature ventricular contractions Borderline repolarization abnormality Compared to ECG 09/09/2013 12:17:19 Ventricular premature complex(es) now present ST (T wave) deviation no longer present Electronically Signed On 09-08-2019 16:56:13 CDT by Gautam Treviño [email or web address] <ELECTRONICALLY SIGNED> By: Gautam Treviño MD, FACC 09/08/19 5115 [id number] [id number] Gautam Treviño MD, [facility] /EPI
[2019-09-27] MEDS ORDERED: MEDROLDOSEPACK PO (09:00)
[2019-09-27] MEDS ORDERED: VOLTAREN GEL 1100 G2 TOP (09:00)
[2019-09-27] MEDS ORDERED: OXYCODONE HCL10 MG PO (09:00)
[2019-09-29] MEDS ORDERED: OXYCODONE HCL10 MG PO (11:33)
== END 2019-09-08 15:40 | disposition home or self-care (01) ==
LOC: M.ERS 10:30
PROVIDERS: Emergency Medicine; Nurse Practitioner Family
DX: R06.00 Dyspnea, unspecified (principal); J45.909 Unspecified asthma, uncomplicated; I10 Essential (primary) hypertension; M79.7 Fibromyalgia; E03.9 Hypothyroidism, unspecified; Z90.710 Acquired absence of both cervix and uterus; Z98.890 Other specified postprocedural states; Z88.8 Allergy status to other drugs, medicaments and biological substances; Z88.1 Allergy status to other antibiotic agents; Z86.2 Personal history of diseases of the blood and blood-forming organs and certain disorders involving the immune mechanism

== ENCOUNTER → 2019-09-29 | Outpatient (CLI) | payer OTHER, MEDICAID ==
[~2019-09-29] MED LIST changes: +MEDROLDOSEPACK PO
== END ==
LOC: M.PC 05:12
DX: M54.5 Low back pain (principal)

== ENCOUNTER → 2019-10-17 | Outpatient (CLI) | payer OTHER, MEDICAID ==
--- NOTE | 2019-10-17 17:33 | 2DMMODE ---
[place] [address] 2 D/M-MODE ECHOCARDIOGRAM Name: PETER GUNDERSONTOMAS ZARATE Room: [facility]#: [id number] Admission: 10/17/19 Attend Phys: Davonte Vera Discharge: Date of : 46 Date of Service: 10/17/19 1733 Report #: [id number] THIS REPORT FOR: //name// APPROVED REPORT Study performed: 10/17/2019 13:55:59 EXAM: Comprehensive 2D, Doppler, and color-flow Echocardiogram Patient Location: Out-Patient BSA: 2.10 HR: 65 bpm BP: 140/70 mmHg Other Information Study Quality: Good Indications Dyspnea 2D Dimensions IVSd: 11.01 (7-11mm) LVOT Diam: 20.26 (18-24mm) LVDd: 45.09 mm PWd: 11.40 (7-11mm) Ascending Ao: 28.97 (22-36mm) LVDs: 23.62 (25-40mm) Aortic Root: 30.22 mm Volumes Left Atrial Volume (Systole) LA ESV Index: 11.50 mL/m2 Aortic Valve AoV Peak Kilo.: 1.52 m/s AO Peak Gr.: 9.26 mmHg LVOT Max P.57 mmHg AO Mean Gr.: 4.62 mmHg LVOT Mean P.81 mmHg LVOT Max V: 0.94 m/s AO V2 VTI: 27.95 cm LVOT Mean V: 0.62 m/s IMANI (VTI): 2.54 cm2 LVOT V1 VTI: 21.99 cm Mitral Valve E/A Ratio: 1.03 MV Decel. Time: 182.33 ms MV E Max Kilo.: 0.82 m/s MV PHT: 52.88 ms MVA (PHT): 4.16 [place]2 [place] [address] 2 D/M-MODE ECHOCARDIOGRAM Name: ELINOR GUNDERSONETTE Room: [facility]#: [id number] Admission: 10/17/19 Attend Phys: Davonte Vera Discharge: Date of : 46 Date of Service: 10/17/19 1733 Report #: [id number] TDI E/Lateral E': 8.20 E/Medial E': 9.11 Medial E' Kilo.: 0.09 m/s Lateral E' Kilo.: 0.10 m/s Pulmonary Valve PV Peak Kilo.: 1.07 m/s PV Peak Gr.: 4.60 mmHg Left Ventricle The left ventricle is normal size. There is normal LV segmental wall motion. There is normal left ventricular wall thickness. Left ventricular systolic function is normal. LVEF is 55-60%. Transmitral Doppler flow pattern suggests impaired LV relaxation. Right Ventricle The right ventricle is normal size. The right ventricular systolic function is normal. Atria The left atrium size is normal. The right atrium size is normal. Aortic Valve The aortic valve is normal in structure. No aortic regurgitation is present. There is no aortic valvular stenosis. Mitral Valve The mitral valve is normal in structure. Mild mitral regurgitation. No evidence of mitral valve stenosis. Tricuspid Valve The tricuspid valve is normal in structure. There is no tricuspid valve regurgitation noted. Pulmonic Valve The pulmonary valve is normal in structure. There is no pulmonic valvular regurgitation. Great Vessels The aortic root is normal in size. IVC is not well visualized. Pericardium There [place] [address] 2 D/M-MODE ECHOCARDIOGRAM Name: NEPTALIELINOR [facility] [id number] Admission: 10/17/19 Attend Phys: Davonte Vera Discharge: Date of : 46 Date of Service: 10/17/19 1733 Report #: [id number] <Conclusion> The left ventricle is normal size. There is normal left ventricular wall thickness. Left ventricular systolic function is normal. LVEF is 55-60%. Transmitral Doppler flow pattern suggests impaired LV relaxation. Mild mitral regurgitation. <ELECTRONICALLY SIGNED> By: Gautam Treviño MD, FACC 10/17/19 1733 1733 1733 Gautam Treviño MD, FACC /INF
== END ==
LOC: M.CRD 13:27
DX: I34.0 Nonrheumatic mitral (valve) insufficiency (principal); Z88.8 Allergy status to other drugs, medicaments and biological substances; Z88.0 Allergy status to penicillin; N28.9 Disorder of kidney and ureter, unspecified

== ENCOUNTER → 2019-11-03 | Outpatient (CLI) | payer OTHER, MEDICAID ==
--- NOTE | ~2019-11-03 | PAINCON ---
[address] [address] PAIN MANAGEMENT CONSULTATION Name: ELINOR GUNDERSON Room: [facility] SH[facility]I Santos#: [id number] Admission: 11/03/19 Attend Phys: Claire Garay MD Discharge: Date of : 46 Report #: [id number] THIS REPORT FOR: //name// CC: Claire Persadu DATE OF SERVICE: 11/03/2019 CHIEF COMPLAINT: Back pain that is going down into the legs. HISTORY: The patient is a 69-year-old female who has been seen in the pain clinic because of lumbar radiculopathy. Epidural steroid injections in the past have provided significant benefit. At this juncture, she continues to have pain, which is problematic. She has considered another epidural steroid injection. She feels that her asthma is better at this juncture. She is being treated with an antibiotic because of sinus problems at this juncture. She does have a few more tablets to take. She was evaluated in regards to her cardiac status. Stated that the things turned out fine. She has been taken off lisinopril. Overall, things have been going reasonably well since the discontinuation of the lisinopril. She feels that her pain is about 50% better with her current medical regimen. Notes that the cold temperatures in the 30 have changed and increased her discomfort. Pain is noted with prolonged standing, climbing of stairs, bending and lifting. Pain radiates down the back of both legs. ALLERGIES: DURAGESIC FORTE, DURA-VENT/DA, AMOXICILLIN, CHLORPHENTERMINE, DICLOFENAC, AUGMENTIN, LORACARBEF, LEVAQUIN AND MICARDIS. MEDICATIONS: Which cause some problems, lisinopril, which has been recently discontinued. CURRENT MEDICATIONS: Flexeril 10 mg at bedtime, Voltaren gel to the upper extremity 4 times daily, Synthroid 0.05 mg, Zanaflex, Zestril 10 mg b.i.d., metoprolol 50 mg b.i.d., nabumetone 500 mg, Prilosec 20 mg, OxyIR 10 mg q.4 hours p.r.n., Lyrica 150 mg b.i.d., Zoloft 100 mg. PAIN CLINIC ASSESSMENT AND PQRS: 1. The patient is not being treated for rheumatoid arthritis. She does have some osteoarthritic changes in her back. She complains of some discomfort in her hip. 2. Height is 5 feet 6 inches, weight 233 pounds, BMI is 37.6. 3. Vital Signs: Blood pressure 140/92, heart rate 80, respiratory rate 16, room air saturation 93%, temperature 98.2. 4. Pain intensity 5/10. 5. Fall history: The patient has not fallen in the last 3 months. 6. Blood thinner. The patient is not on [place] [address] PAIN MANAGEMENT CONSULTATION Name: NEPTALIELINOR ELLIOT Room: [facility]#: [id number] Admission: 11/03/19 Attend Phys: Claire Garay MD Discharge: Date of : 46 Report #: [id number] 7. Hypertension. The patient is being treated for hypertension. 8. Opioid greater than 6 weeks. The patient received medication from one source, pain clinic. 9. Risk assessment tool, low for opioid use. 10. Recreational drug use: The patient denies. 11. Tobacco: The patient denies. 12. Alcohol. The patient denies frequent use of alcoholic beverages. PHYSICAL EXAMINATION: GENERAL: The patient is a well-developed, well-nourished, somewhat obese white female, appears her stated age. She is alert and oriented x 3. Her affect is appropriate. Speech is fluent. HEENT: Normocephalic, atraumatic. Extraocular eye muscles intact. Sclerae nonicteric. Mucous membranes are moist. The patient feels that she has some remnants of her sinus infection. NECK: Without adenopathy or JVD. LUNGS: Generally clear to auscultation. ABDOMEN: Nontender. MUSCULOSKELETAL: The patient without significant scoliosis, kyphosis or lordosis. The patient is having pain that radiating down the posterior portion of her legs in the L5-S1 dermatomal distribution with numbness and tingling. Positive straight leg raise. IMPRESSION: 1. History of lumbar radiculopathy at L5-S1, radiating down to both the left and the right leg. 2. Asthma. 3. Hypertension. 4. Hypoglycemia. 5. History of blood clots. 6. Coronary artery disease. 7. Myocardial infarct 2008. 8. Deep venous thrombosis 2002. 9. Scarlet fever. 10. Thyroid disease. 11. Stomach problems. 12. Peptic ulcer disease. RECOMMENDATIONS: We discussed treatment options with the patient. Risks and benefits of an epidural steroid injection were discussed. Given that the patient is still being treated for sinus infection. I think that we should wait until this has been resolved. The patient follow up with her primary in regards to whether or not additional medication if needed. States that she has been taking her antibiotics, but has forgotten on some days to take the medication. States that she has a few pills left. We explained to her the need to make sure that this infection has been treated as best one could before proceeding with an [address] [address] PAIN MANAGEMENT CONSULTATION Name: ELINOR GUNDERSON ELLIOT Room: [facility].#: [id number] Admission: 11/03/19 Attend Phys: Claire Garay MD Discharge: Date of : 46 Report #: [id number] epidural injection. The possibility of complications, which could arise were reviewed with the patient. At this point, she agrees and will return to the Pain Clinic after being evaluated by her primary doctor for the sinus infection. At that time she returns, we would then proceed with an epidural steroid injection. We would like to thank you for letting us participate in her care. We hope she continues to improve. By: 1501 1928N. Michele Garay MD /FARHAD
== END ==
LOC: M.PC 04:46
DX: M54.16 Radiculopathy, lumbar region (principal); J45.909 Unspecified asthma, uncomplicated; I10 Essential (primary) hypertension; I25.10 Atherosclerotic heart disease of native coronary artery without angina pectoris; I25.2 Old myocardial infarction

== ENCOUNTER → 2019-12-01 | Outpatient (CLI) | payer OTHER, MEDICAID ==
--- NOTE | 2019-12-07 16:39 | PAINCON ---
[place] [address] PAIN MANAGEMENT CONSULTATION Name: ELINOR GUNDERSON Room: [facility] Tom#: [id number] Admission: 12/01/19 Attend Phys: Claire Garay MD Discharge: Date of : 46 Report #: [id number] THIS REPORT FOR: //name// CC: Claire Persaud DO DATE OF SERVICE: 12/01/2019 CHIEF COMPLAINT: Back pain and I would like to undergo an injection. HISTORY: The patient is a 69-year-old female who has been seen in the pain clinic in the past because of lumbar radiculopathy. She has had pain that is radiating down the lower portion of her back and into the posterior portion of her legs bilaterally. She has undergone epidural steroid injections and found them to be beneficial. She returns today with the hope of undergoing an epidural steroid injection. She has been cleared by her doctors regarding infections. She is not taking any antibiotics at this point. She states that she saw her physician regarding the infections about 3 days ago. She does note some increased pain and discomfort with activity. The weather has gotten colder. Walking, standing, climbing stairs, bending and lifting have been problematic. No new change in bowel or bladder function. ALLERGIES: DURAGESIC, FORTE, DURA-VENT/DA, AMOXICILLIN, CHLORPHENTERMINE, DICLOFENAC, AUGMENTIN, LORACARBEF, LEVAQUIN, MICARDIS. Medication which has caused some problems that has been lisinopril. This has been recently discontinued. CURRENT MEDICATIONS: Flexeril 10 mg at bedtime, Voltaren gel to the upper extremities 4 times daily, Synthroid 0.05 mg, Zanaflex, Zestril 10 mg b.i.d., metoprolol 50 mg b.i.d., nabumetone 500 mg, Prilosec 20 mg, OxyIR 10 mg q.4 hours p.r.n., Lyrica 150 mg b.i.d., Zoloft 100 mg. PAIN CLINIC ASSESSMENT AND PQRS: 1. The patient is not being treated for rheumatoid arthritis. She does have some osteoarthritic changes in her back. She does complain of pain in her hip. 2. Height 5 feet 6 inches, weight 229 pounds, BMI is 37.1. 3. Vital Signs: Blood pressure 136/72, heart rate 80, respiratory rate 16, room air saturation is 91%. 4. Pain intensity is 8/10. 5. Fall history: The patient has not fallen in the last 3 months. 6. Blood thinner. The patient is not on a blood thinning medication. 7. Hypertension. The patient is being treated for hypertension. 8. Opioids greater than 6 weeks. The patient received medication from one source, [place] [address] PAIN MANAGEMENT CONSULTATION Name: ELINOR GUNDERSON [id number] Admission: 12/01/19 Attend Phys: Claire Garay MD Discharge: Date of : 46 Report #: [id number] 9. Risk assessment tool, low for opioid use. 10. Recreational drug use: The patient denies. 11. Tobacco: The patient denies. 12. Alcohol: The patient denies frequent use of alcoholic beverages. PHYSICAL EXAMINATION: GENERAL: The patient is a well-developed, well-nourished white female. Appears her stated age, somewhat obese. She is alert and oriented x 3. Her affect is appropriate. Speech is fluent. HEENT: Normocephalic, atraumatic. Extraocular eye muscles intact. Sclerae nonicteric. Mucous membranes are moist. NECK: Without adenopathy or JVD. LUNGS: Clear to auscultation. ABDOMEN: Nontender. MUSCULOSKELETAL: The patient without significant scoliosis, kyphosis or lordosis. The patient is having pain that is radiating down the posterior portion of her legs in the L5-S1 dermatomal distribution with numbness and tingling. Positive straight leg raises. IMPRESSION: 1. History of lumbar radiculopathy, L5-S1 radiating down to both left and the right leg. 2. Asthma. 3. Hypertension. 4. Hypoglycemia. 5. History of blood clots. 6. Coronary artery disease. 7. Myocardial infarct 2008. 8. Deep venous thrombosis 2002. 9. Scarlet fever. 10. Thyroid disease. 11. Stomach problems. 12. Peptic ulcer disease. RECOMMENDATIONS: We discussed treatment options with the patient. Risks and benefits of an epidural steroid injection were again discussed. Possible complications of the procedure, which could include but are not limited to infection, worsening pain, no improvement in pain, increased muscle soreness and nerve damage were explained. The patient elects to proceed. PROCEDURE NOTE: The patient was taken to the procedure area. She was then assisted in getting on examination table. Her back was sterilely prepped with a Betadine solution. A pillow was placed under the abdomen to bolster and improve positioning. Fluoroscopy using anterior, posterior as well as lateral viewing were implemented. Her back was sterilely prepped with a Betadine solution. A 25-gauge needle was then advanced into the midline area at the L5-S1. This [facility] [address] [address] PAIN MANAGEMENT CONSULTATION Name: ELINOR GUNDERSON Room: [facility] M.R.#: [id number] Admission: 12/01/19 Attend Phys: Claire Garay MD Discharge: Date of : 46 Report #: [id number] anesthetized the area. A 17-gauge Tuohy with loss of resistance technique was then used to gain access to the epidural space. There was no CSF, heme or paresthesia. Total of 80 mg Depo-Medrol, 40 mg triamcinolone and 2 mL of 0.25% bupivacaine was injected. The patient tolerated the procedure well. There were no complications. She remained in the Pain Clinic for an appropriate amount of time. She will follow up in the future as needed. We would like to thank you for letting us participate in her care. We hope she continues to improve. <ELECTRONICALLY SIGNED> By: Claire Garay MD 12/07/19 1639 [id number] 2110N. Michele Garay MD /nt
== END | disposition home or self-care (01) ==
LOC: M.PC 10:40
DX: M54.16 Radiculopathy, lumbar region (principal); G89.29 Other chronic pain; I10 Essential (primary) hypertension; J45.909 Unspecified asthma, uncomplicated; I25.10 Atherosclerotic heart disease of native coronary artery without angina pectoris; E07.9 Disorder of thyroid, unspecified; I25.2 Old myocardial infarction; Z98.890 Other specified postprocedural states; Z79.899 Other long term (current) drug therapy; Z86.718 Personal history of other venous thrombosis and embolism; Z79.01 Long term (current) use of anticoagulants; Z87.19 Personal history of other diseases of the digestive system; Z88.8 Allergy status to other drugs, medicaments and biological substances

== ENCOUNTER → 2020-01-03 | Outpatient (CLI) | payer OTHER, MEDICAID ==
--- NOTE | 2020-01-06 09:07 | PAINCON ---
[place] [address] PAIN MANAGEMENT CONSULTATION Name: ELINOR GUNDERSON Room: [facility] Bo.#: [id number] Admission: 01/03/20 Attend Phys: Claire Garay MD Discharge: Date of : 48 Report #: [id number] THIS REPORT FOR: //name// cc: Jose Persaud Steve T. DO ~ THIS REPORT FOR: //name// CC: Claire Persaud DATE OF SERVICE: 01/03/2020 CHIEF COMPLAINT: Low back pain and right hip pain. HISTORY: The patient is a 69-year-old female who has been seen in the pain clinic because of lumbar radiculopathy. She has undergone epidural steroid injections in the past. These have been helpful. She underwent an epidural injection in November. She still notes benefit from that. Still has pain and discomfort in the lower portion of her back as well as some pain in the right groin areas. She has returned today for renewal of her medications. She received about 70% improvement and the pain relief after the last injection. She has found use of Voltaren gel is helpful. She would like to continue with this medication. Still has some discomfort with activities of daily living. The cold weather has made things more problematic. She notes walking, standing, climbing stairs, bending and lifting can be problematic. She has used her medication and finds that beneficial. She has used hot and cold to the back area. She feels that her medications are helpful. She is not having any problems with the oxycodone medication. She also finds that renewal of her Voltaren gel would be desirable today. ALLERGIES: DURAGESIC, DURA-VENT/DA, AMOXICILLIN, CHLORPHENTERMINE, DICLOFENAC, AUGMENTIN, LORACARBEF, LEVAQUIN, AND MICARDIS. The patient has used lisinopril, this has been disconnected. CURRENT MEDICATIONS: Flexeril 10 mg at bedtime, Voltaren gel to the upper extremity 4 times daily, Synthroid 0.05 mg, Zanaflex, Zestril 10 mg b.i.d., metoprolol 50 mg b.i.d., nabumetone 500 mg, Prilosec 20 mg, OxyIR 10 mg q.4 hours p.r.n., Lyrica 150 mg b.i.d., Zoloft 100 mg. PAIN CLINIC ASSESSMENT AND PQRS: 1. The patient is not being treated for rheumatoid arthritis. She does have some arthritic changes in her back. Has some complaints of arthritic changes/pain in her hips and in the groin area. 2. Height 5 feet 6 inches, weight 224 pounds, BMI is 36. 3. Vital Signs: Blood pressure 119/62, heart rate 68, respiratory rate 16, room air saturation 93%, temperature 98.0. [place] [address] PAIN MANAGEMENT CONSULTATION Name: ELINOR GUNDERSON Room: [facility]#: [id number] Admission: 01/03/20 Attend Phys: Claire Garay MD Discharge: Date of : 48 Report #: [id number] 4. Pain intensity /10. 5. Fall history: The patient has not fallen in the last 3 months. 6. Blood thinner. The patient is not on a blood thinning medication. 7. Hypertension. The patient is not being treated for hypertension. 8. Opioids greater than 6 weeks. The patient received medication from one source, pain clinic. 9. Risk assessment tool, low for opioid use. 10. Functional assessment tool. 11. Recreational drug use: The patient denies. 12. Tobacco: The patient denies. 13. Alcohol: The patient denies frequent use of alcoholic beverages. PHYSICAL EXAMINATION: GENERAL: The patient is a well-developed, well-nourished, somewhat obese white female, appears her stated age. She is alert and oriented x 3. Her affect is appropriate. Speech is fluent. HEENT: Normocephalic, atraumatic. Extraocular eye muscles intact. Sclerae nonicteric. Mucous membranes are moist. NECK: Without adenopathy or JVD. LUNGS: Clear to auscultation. ABDOMEN: Protuberant. Bowel sounds present. EXTREMITIES: Upper extremity muscle strength judged to be 5-/5 for the major muscle groups in the upper extremity. The patient without significant scoliosis, kyphosis or lordosis. The patient does have some pain radiating down the posterior portion of her leg in the L5-S1 dermatomal distribution with numbness and tingling. IMPRESSION: 1. History of lumbar radiculopathy, L5-S1 inject area, status post injection 11/2019. 2. Asthma. 3. Hypertension. 4. Hypoglycemia. 5. History of blood clots. 6. Coronary artery disease. 7. Cardiac infarct in 2008. 8. Deep venous thrombosis in 2002. 9. Scarlet fever. 10. Thyroid disease. 11. Stomach problems. 12. Peptic ulcer disease. RECOMMENDATIONS: We discussed treatment options with the patient. At this juncture, we will continue with her medications. She feels that the oxycodone medication is helpful. We will continue with her medication 10 mg, oxycodone q. 4-6 hours p.r.n., total of 120 tablets have been provided. The patient will [address] [place] [address] PAIN MANAGEMENT CONSULTATION Name: ELINOR GUNDERSON Room: [facility]#: [id number] Admission: 01/03/20 Attend Phys: Claire Garay MD Discharge: Date of : 48 Report #: [id number] also continue with the diclofenac gel to the upper extremity. She finds that this medication is helpful. She will continue to monitor her GI tract. She is taking the diclofenac gel. She does not have any significant bearing on her GI tract. Hopefully, she continues to be helpful with her pain without causing more GI complaints. She will continue with gabapentin 150 mg 1 p.o. b.i.d. She also continue with the muscle spasm medication Flexeril. She will call us if she has any concerns. She has benefit from the epidural steroid injection. We would like to thank you for letting us participate in her care. We hope she continues to improve. <ELECTRONICALLY SIGNED> By: Claire Garay MD 01/06/20 0907 1519 [id number]. Michele Garay MD /[facility]
== END ==
LOC: M.PC 12-29 09:40
DX: M54.16 Radiculopathy, lumbar region (principal); J45.909 Unspecified asthma, uncomplicated; I10 Essential (primary) hypertension; I25.10 Atherosclerotic heart disease of native coronary artery without angina pectoris; I82.409 Acute embolism and thrombosis of unspecified deep veins of unspecified lower extremity; K27.9 Peptic ulcer, site unspecified, unspecified as acute or chronic, without hemorrhage or perforation

== ENCOUNTER → 2020-02-02 | Outpatient (CLI) | payer OTHER, MEDICAID ==
[~2020-02-02] MED LIST changes: +NEURONTIN100 MG PO
--- NOTE | 2020-02-10 09:01 | PAINCON ---
[address] [address] PAIN MANAGEMENT CONSULTATION Name: NEPTALIELINOR A Room: [facility].#: [id number] Admission: 02/02/20 Attend Phys: Claire Garay MD Discharge: Date of : 46 Report #: [id number] THIS REPORT FOR: //name// cc: Jose Persaud Steve T. DO ~ THIS REPORT FOR: //name// CC: Claire Persaud DO DATE OF SERVICE: 02/02/2020 CHIEF COMPLAINT: Low back pain with pain down into the legs. HISTORY OF PRESENT ILLNESS: The patient is a 69-year-old female, who has been followed in the Pain Clinic. She has been treated for lumbar radiculopathy. She has undergone epidural steroid injections and found them beneficial. She returns today indicating that she is having more pain in the low back area with pain radiating down into her legs. In the past, epidural steroid injections helped quell this discomfort. She has returned today with the hopes of undergoing another injection. She rates her pain as 7/10 today; notes that the pain can rise to a level of 10/10. She continues to use pain medications of oxycodone. She also finds that gabapentin medication in conjunction with Flexeril is helpful. Her pain is about 60% improved with her use of these medications. She notes that the pain is worse when she is walking, sitting, standing, bending, and twisting. Cold weather can exacerbate her discomfort as well. She has used heat, cold, and rest. ALLERGIES: DURAGESIC, DURA-VENT/DA, AMOXICILLIN, CHLORPHENTERMINE, DICLOFENAC, AUGMENTIN, LORACARBEF, LEVAQUIN, AND MICARDIS. CURRENT MEDICATIONS: Flexeril 10 mg at bedtime, Voltaren Gel to the upper extremity 4 times daily, Synthroid 0.05%, Zanaflex, Zestril 10 mg b.i.d., metoprolol 50 mg b.i.d., Nabumetone 500 mg, Prilosec 20 mg, OxyIR 10 mg, Lyrica 150 mg b.i.d., and Zoloft 100 mg. PAIN CLINIC ASSESSMENT/PQRS: 1. The patient is not being treated for rheumatoid arthritis. She does have some arthritic changes in her back; complains of some arthritic changes in her hips and in the groin area. 2. Height 5 feet 6 inches, weight 228 pounds, body mass index 38.6. 3. Vital signs: Blood pressure 151/90, heart rate 75, respiratory rate 16, room air saturation 94%, and temperature 98.3. 4. Pain intensity is 7/10. 5. Fall history: The patient has not fallen in the last 3 [place] [address] PAIN MANAGEMENT CONSULTATION Name: ELINOR GUNDERSON Room: [facility]#: [id number] Admission: 02/02/20 Attend Phys: Claire Garay MD Discharge: Date of : 46 Report #: [id number] 6. Blood thinner. The patient is not on a blood thinning medication. 7. Hypertension. The patient is not being treated for hypertension. 8. Opioids greater than 6 weeks. The patient received medication from one source, the Pain Clinic. 9. Risk assessment tool: Low for opioid use. 10. Functional assessment tool. 11. Recreational drug use: The patient denies. 12. Tobacco: The patient denies. 13. Alcohol. The patient denies frequent use of alcoholic beverages. PHYSICAL EXAMINATION: GENERAL: The patient is a well-developed, well-nourished, somewhat obese white female, appears her stated age. She is alert and oriented x3. Her affect is appropriate. Speech is fluent. HEENT: Normocephalic, atraumatic. Extraocular eye muscles are intact. Sclerae are anicteric. Mucous membranes are moist. NECK: Without adenopathy. LUNGS: Clear to auscultation. ABDOMEN: Protuberant; bowel sounds present. EXTREMITIES: Upper extremity muscle strength judged to be 5-/5 for the major muscle groups in the upper extremity. The patient is without significant scoliosis, kyphosis, or lordosis. The patient has some pain radiating down the posterior portion of her back and leg in the L5-S1 dermatomal distribution with numbness and tingling. IMPRESSION: 1. Lumbar radiculopathy at L5-S1 with pain radiating down into the lower back area. 2. Asthma. 3. Hypertension. 4. Hypoglycemia. 5. History of blood clots. 6. Coronary artery disease. 7. Cardiac infarct in 2008. 8. Deep venous thrombosis in 2002. 9. Scarlet fever. 10. Thyroid disease. 11. Stomach problems. 12. Peptic ulcer disease. RECOMMENDATIONS: We discussed treatment options with the patient. Risks and benefits of an epidural steroid injection were discussed. They include but are not limited to infection, worsening of pain, no improvement in pain, nerve damage, spinal headache, and the patient elects to proceed. PROCEDURE NOTE: The patient was taken to the procedure [place] [address] PAIN MANAGEMENT CONSULTATION Name: ELINOR GUNDERSON Room: [facility]#: [id number] Admission: 02/02/20 Attend Phys: Claire Garay MD Discharge: Date of : 48 Report #: [id number] assisted in getting on the examination table. Her back was sterilely prepped with Betadine solution. About 0.25% bupivacaine was infiltrated. A 17-gauge Tuohy with loss of resistance technique was used to gain access to the epidural space. There was no CSF, heme, or paresthesia. A total of 80 mg Depo-Medrol, 40 mg triamcinolone, and 2 mL of 0.25% bupivacaine were injected at the L5-S1 interspace. The patient tolerated the procedure well. She remained in the Pain Clinic for an appropriate amount of time. Approximately 10 seconds of fluoroscopy time was used. We would like to thank you for letting us participate in her care. We hope she continues to improve. <ELECTRONICALLY SIGNED> By: Claire Garay MD 02/10/20 0901 1350 [id number]. Michele Garay MD /nt
== END | disposition home or self-care (01) ==
LOC: M.PC 03:57
DX: M54.16 Radiculopathy, lumbar region (principal); G89.29 Other chronic pain; I10 Essential (primary) hypertension; J45.909 Unspecified asthma, uncomplicated; I25.10 Atherosclerotic heart disease of native coronary artery without angina pectoris; I25.2 Old myocardial infarction; Z98.890 Other specified postprocedural states; Z79.899 Other long term (current) drug therapy; Z86.718 Personal history of other venous thrombosis and embolism; Z79.01 Long term (current) use of anticoagulants; Z88.8 Allergy status to other drugs, medicaments and biological substances

== ENCOUNTER → 2020-03-29 | Outpatient (CLI) | payer OTHER, MEDICAID ==
--- NOTE | 2020-04-10 22:12 | PAINCON ---
[address] [address] PAIN MANAGEMENT CONSULTATION Name: ELINOR GUNDERSON Panchito Room: [facility]#: [id number] Admission: 03/29/20 Attend Phys: Claire Garay MD Discharge: Date of : 46 Report #: [id number] THIS REPORT FOR: //name// cc: Jose Persaud Steve T. DO ~ THIS REPORT FOR: //name// CC: Claire Persaud DATE OF SERVICE: 03/29/2020 CHIEF COMPLAINT: Low back pain and I would like to have an epidural injection. HISTORY: The patient is a 69-year-old female. She has undergone epidural steroid injections. She does suffer from lumbar radiculopathy. She has found that these injections have been fruitful. She returns today indicating that her pain has become more problematic. She would like to proceed with an epidural injection. She rates her pain as a 6/10. She has pain in her right hip, right groin with radiation down to her knees bilaterally. Notes that the pain decreases her level of activity. She is staying in home. She is aware of the COVID-19 virus pandemic. She feels that her Voltaren, oxycodone, Flexeril and gabapentin are helpful and provided about 75% of pain relief. ALLERGIES: DURAGESIC, DURA-VENT/DA, AMOXICILLIN, CHLORPHENIRAMINE, DICLOFENAC, AUGMENTIN, LORACARBEF, LEVAQUIN, AND MICARDIS. CURRENT MEDICATIONS: Flexeril 10 mg at bedtime, Voltaren gel to the upper extremity 4 times daily, Synthroid 50 mcg, Zanaflex, Zestril 10 mg b.i.d., metoprolol 50 mg b.i.d., nabumetone 500 mg, Prilosec 20 mg, OxyIR 10 mg, Lyrica 150 mg b.i.d., Zoloft 100 mg. PAIN CLINIC ASSESSMENT AND PQRS: 1. The patient is not being treated for rheumatoid arthritis. She does have some arthritic changes in her back. She has some arthritic changes and complaints in her hips. 2. Height 5 feet 6 inches, weight 229 pounds, BMI is 37.0. 3. Vital Signs: Blood pressure 149/71, heart rate 74, respiratory rate 16, room air saturation is 93%, temperature 97.3. 4. Pain intensity 6/10. 5. Fall history: The patient has not fallen in the last 3 months. 6. Blood thinner. The patient is not on a blood thinning medication. 7. Hypertension. The patient is not being treated for hypertension. 8. Functional assessment tool reviewed. 9. Recreational drug use. The patient denies. 10. Tobacco: [place] [address] PAIN MANAGEMENT CONSULTATION Name: ELINOR GUNDERSON Room: [facility]#: [id number] Admission: 03/29/20 Attend Phys: Claire Garay MD Discharge: Date of : 46 Report #: [id number] 11. Alcohol. The patient denies frequent use of alcoholic beverages. PHYSICAL EXAMINATION: GENERAL: The patient is a well-developed, well-nourished white female. Appears her stated age. She is alert and oriented x 3. Her affect is appropriate. Speech is fluent. HEENT: Normocephalic, atraumatic. Extraocular eye muscles intact. Sclerae nonicteric. Mucous membranes are moist. NECK: Without adenopathy or JVD. LUNGS: Generally clear to auscultation. ABDOMEN: Protuberant. Bowel sounds present. EXTREMITIES: Upper extremity muscle strength judged to be 5-/5 for the major muscle groups in the upper extremity. The patient is without significant scoliosis, kyphosis or lordosis. The patient has pain and discomfort with pain that is radiating down the posterior portion of her back and leg in the L5-S1 dermatomal distribution. She has numbness and tingling. IMPRESSION: 1. Lumbar radiculopathy with L5-S1 dermatomal distribution with pain radiating down into the leg. 2. Asthma. 3. Hypertension. 4. Hypoglycemia. 5. History of blood clots. 6. Coronary artery disease. 7. Cardiac infarct in 2008. 8. Deep venous thrombosis in 2002. 9. Scarlet fever history. 10. Thyroid disease. 11. Stomach problems. 12. Peptic ulcer disease. RECOMMENDATIONS: We discussed treatment options with the patient. At this juncture, we will proceed with an epidural steroid injection. Risks and benefits of the procedure were again discussed. They could include but are not limited to infection, muscle soreness, bleeding, nerve damage, spinal headache. We also alerted the patient to the possibility of worsening of pain. The patient is aware of the COVID-19 pandemic. We explained to the patient that given her age as a comorbidity and the use of steroids can suppress once immunity that she may have a worse outcome. Should she become infected with the COVID-19 virus. At this point, she feels that her pain is quite problematic. She would like to proceed with an injection having thought about the possible complications. PROCEDURE NOTE: The patient was taken to the procedure area. She was then assisted in getting on the examination table. Her [place] [address] PAIN MANAGEMENT CONSULTATION Name: NEPTALIELINOR Panchito Room: [facility]#: [id number] Admission: 03/29/20 Attend Phys: Claire Garay MD Discharge: Date of : 46 Report #: [id number] the L5-S1 area with Betadine. A 0.25% bupivacaine was infiltrated at the L5-S1 area with 0.25% bupivacaine and a 25-gauge needle. This area was anesthetized. A 17-gauge Tuohy with loss of resistance technique was used to gain access to the epidural space. There was no CSF, heme or paresthesia. Fluoroscopy using anterior, posterior as well as lateral viewing were used to confirm placement. Total of 80 mg Depo-Medrol, 40 mg triamcinolone and 2 mL of 0.25% bupivacaine was injected. The patient tolerated the procedure well. There were no complications. A script for her medications of Voltaren gel 100 mg 2 tubes, oxycodone 10 mg one p.o. q. 4-6 hours 120 tablets, cyclobenzaprine 10 mg 1 p.o. at bedtime and Neurontin 100 mg 1 p.o. t.i.d. have been provided. The patient will call us if she has any concerns. We would like to thank you for letting us participate in her care. We hope she continues to improve. <ELECTRONICALLY SIGNED> By: Claire Garay MD 04/10/20 2212 1139 2203N. Michele Garay MD /[facility]
== END | disposition home or self-care (01) ==
LOC: M.PC 04:10
PROVIDERS: ATTEND Anesthesiology Pain Medicine
DX: M54.16 Radiculopathy, lumbar region (principal); G89.29 Other chronic pain; I10 Essential (primary) hypertension; I25.10 Atherosclerotic heart disease of native coronary artery without angina pectoris; J45.909 Unspecified asthma, uncomplicated; Z98.890 Other specified postprocedural states; Z79.899 Other long term (current) drug therapy; Z86.718 Personal history of other venous thrombosis and embolism; Z79.01 Long term (current) use of anticoagulants; Z87.19 Personal history of other diseases of the digestive system

== ENCOUNTER → 2020-05-24 | Outpatient (CLI) | payer OTHER, MEDICAID ==
--- NOTE | 2020-05-30 11:31 | PAINCON ---
[place] [address] PAIN MANAGEMENT CONSULTATION Name: NEPTALIELINOR Panchito Room: [facility]#: [id number] Admission: 05/24/20 Attend Phys: Claire Garay MD Discharge: Date of : 46 Report #: [id number] THIS REPORT FOR: //name// cc: Jose Persaud Steve T. DO ~ THIS REPORT FOR: //name// CC: Claire Persaud DO DATE OF SERVICE: 05/24/2020 CHIEF COMPLAINT: Here for an epidural injection. HISTORY: The patient is a 69-year-old female who has been followed in the pain clinic because of lumbar radiculopathy. She has undergone epidural steroid injections in the past and found them beneficial. She rates her pain today as a 6-7/10. She is having pain that radiates down into her hips and down into both legs. There is an aching sensation. She feels her pain overall is about 50% improved with use of her oxycodone immediate release medications. She is somewhat fearful of the COVID-19 pandemic. She has come today with the hopes of undergoing an injection. ALLERGIES: DURAGESIC, AMOXICILLIN, CHLORPHENIRAMINE, DICLOFENAC, AUGMENTIN, LORACARBEF, LEVAQUIN, AND MICARDIS. CURRENT MEDICATIONS: Flexeril 10 mg at bedtime, Voltaren gel to the upper extremities 4 times daily, Synthroid 50 mcg, Zanaflex, Zestril 10 mg b.i.d., metoprolol 50 mg b.i.d., nabumetone 500 mg, Prilosec 20 mg, OxyIR 10 mg, Lyrica 150 mg b.i.d., and Zofran. PAIN CLINIC ASSESSMENT/PQRS: 1. The patient is not being treated for rheumatoid arthritis. 2. The patient does have some osteoarthritic changes in her back. Complains of pain and discomfort in her hips. 3. Height 5 feet 6 inches, weight 234 pounds, BMI is 37.5. 4. Vital signs: Blood pressure 168/74, heart rate 72, respiratory rate 20, room air saturation 96%, temperature 97.3. 5. Pain intensity is 6/10. 6. Fall history: The patient has not fallen in the last 3 months. 7. Blood thinner. The patient is not on a blood thinning medication. 8. Hypertension. The patient is not being treated for hypertension. 9. Functional assessment tool, reviewed. 10. Recreational drug use. The patient denies. 11. Tobacco: [place] [address] PAIN MANAGEMENT CONSULTATION Name: NEPTALIELINOR Room: [facility]#: [id number] Admission: 05/24/20 Attend Phys: Claire Garay MD Discharge: Date of : 46 Report #: [id number] 12. Alcohol. The patient denies frequent use of alcoholic beverages. PHYSICAL EXAMINATION: GENERAL: The patient is a well-developed, well-nourished white female. Appears her stated age. She is alert and oriented x 3. Her affect is appropriate. Speech is fluent. HEENT: Normocephalic, atraumatic. Extraocular eye muscles intact. Sclerae nonicteric. Mucous membranes are moist. The patient is wearing a mask. NECK: Without adenopathy or JVD. LUNGS: Generally clear to auscultation. ABDOMEN: Protuberant. Bowel sounds present. MUSCULOSKELETAL: Upper extremity muscle strength judged to be 5-/5 for the major muscle groups in the upper extremity. The patient without significant scoliosis, kyphosis, or lordosis. The patient has pain and discomfort that radiates down into the posterior portion of her legs in the L5-S1 dermatomal distribution bilaterally. Has some numbness and tingling. Positive straight leg raise. IMPRESSION: 1. Lumbar radiculopathy in the L5-S1 dermatomal distribution. 2. Asthma. 3. Hypertension. 4. Hypoglycemia. 5. History of blood clots. 6. Coronary artery disease. 7. Cardiac infarct in 2008. 8. Deep venous thrombosis in 2002. 9. Scarlet fever history. 10. Thyroid disease. 11. Stomach problems. 12. Peptic ulcer disease history. RECOMMENDATIONS: We discussed treatment options with the patient. Risks and benefits of an epidural steroid injection were again reviewed. Possible complications of the procedure were discussed. The patient elects to proceed. PROCEDURE NOTE: The patient was taken to the procedure area. She was then assisted in getting on examination table. Her back was sterilely prepped with a Betadine solution. A 0.25% bupivacaine was infiltrated at the L5-S1 area. A total of 3 mL of 0.25% was injected using a 25-gauge needle. A 17-gauge Tuohy with loss of resistance technique was used to gain access to the epidural space. There was no CSF, heme, or paresthesia. A total of 80 mg Depo-Medrol, 40 mg triamcinolone, and 2 mL of 0.25% bupivacaine was injected. The patient tolerated the procedure well. There were no complications. She remained in the Pain Clinic for an appropriate amount of time. She will follow up in the future as needed. A total of 12 seconds of fluoroscopy time was [place] [address] PAIN MANAGEMENT CONSULTATION Name: ELINOR GUNDERSON Room: [facility]#: [id number] Admission: 05/24/20 Attend Phys: Claire Garay MD Discharge: Date of : 46 Report #: [id number] will call us if she has any concerns. A script for her medications of gabapentin 100 mg one at bedtime, 1 at noon, and 2 in the a.m. were provided. The patient will also continue with OxyIR 10 mg one p.o. q. 4-6 hours, total of 120 tablets have been dispensed. We would like to thank you for letting us participate in her care. We hope she continues to improve. <ELECTRONICALLY SIGNED> By: Claire Garay MD 05/30/20 1131 1452 [id number]. Michele Garay MD /[facility]
== END | disposition home or self-care (01) ==
LOC: M.PC 04:26
PROVIDERS: ATTEND Anesthesiology Pain Medicine
DX: M54.16 Radiculopathy, lumbar region (principal); G89.29 Other chronic pain; I10 Essential (primary) hypertension; I25.2 Old myocardial infarction; I25.10 Atherosclerotic heart disease of native coronary artery without angina pectoris; E07.9 Disorder of thyroid, unspecified; J45.909 Unspecified asthma, uncomplicated; Z98.890 Other specified postprocedural states; Z79.899 Other long term (current) drug therapy; Z86.718 Personal history of other venous thrombosis and embolism; Z79.01 Long term (current) use of anticoagulants

== ENCOUNTER → 2020-08-23 | Outpatient (CLI) | payer OTHER, MEDICAID | END | disposition home or self-care (01) | LOC: M.PC 08-09 11:50 | PROVIDERS: ATTEND Anesthesiology Pain Medicine | DX: M54.16 Radiculopathy, lumbar region (principal); G89.29 Other chronic pain ==

== ENCOUNTER → 2020-09-18 | Outpatient (CLI) | payer OTHER, MEDICAID ==
--- NOTE | ~2020-09-18 | PAINCON ---
[place] [address] PAIN MANAGEMENT CONSULTATION Name: ELINOR GUNDERSON Room: [facility]#: [id number] Admission: 09/18/20 Attend Phys: Claire Garay MD Discharge: Date of : 46 Report #: [id number] THIS REPORT FOR: //name// cc: Jose Persaud Steve T. DO ~ CC: Claire Persaud DATE OF SERVICE: 09/18/2020 CHIEF COMPLAINT: Mid back, low back and pain in the knees. HISTORY: The patient is a 70-year-old female who has been followed in the Pain Clinic. She suffers from low back pain. Also, she has been experiencing pain involving her knees. Epidural steroid injections in the past have proven beneficial. She notes that her pain is quite problematic. She is not sleeping well. She notes that the pain radiates down her back and into her right hip. She would like an oral steroid trial. She rates her pain as a 7/10 today. ALLERGIES: DURAGESIC, AMOXICILLIN, CHLORPHENIRAMINE, DICLOFENAC, AUGMENTIN, LORACARBEF, LEVAQUIN, AND MICARDIS. CURRENT MEDICATIONS: Flexeril 10 mg at bedtime, Voltaren gel to the upper extremity 4 times daily, Synthroid 50 mcg, Zanaflex, Zestril 10 mg b.i.d., metoprolol 50 mg b.i.d., nabumetone 500 mg, Prilosec 20 mg, OxyIR 10 mg, Lyrica 150 mg b.i.d., and Zofran. PAIN CLINIC ASSESSMENT AND PQRS: 1. The patient is not being treated for rheumatoid arthritis. She does have some osteoarthritic changes in her back. Continues pain and discomfort in her hips. 2. Height 5 feet 6 inches, weight 226 pounds, BMI is 36.6. 3. Vital Signs: Blood pressure 151/104, heart rate 72, respiratory rate 16, room air saturation is 95%, temperature 97.6. 4. Pain intensity 05/25. 5. Fall history: The patient has not fallen since we saw her last. 6. Blood thinner. The patient is not on a blood thinning medication. 7. Hypertension. The patient is being treated for hypertension. 8. Functional assessment tool reviewed. 9. Recreational drug use: The patient denies. 10. Tobacco: The patient denies. 11. Alcohol. The patient denies use of alcoholic beverages. PHYSICAL EXAMINATION: GENERAL: The patient is a well-developed, well-nourished white female. Appears her stated age. She is alert and oriented x 3. [place] [address] PAIN MANAGEMENT CONSULTATION Name: ELINOR GUNDERSON Room: [facility]#: [id number] Admission: 09/18/20 Attend Phys: Claire Garay MD Discharge: Date of : 46 Report #: [id number] Speech is fluent. The patient is wearing a facial covering. HEENT: Normocephalic, atraumatic. Extraocular eye muscles intact. NECK: Without adenopathy or JVD. LUNGS: Clear. ABDOMEN: Protuberant. Bowel sounds present. EXTREMITIES: Upper extremity muscle strength judged to be 5/5 for the major muscle groups in the upper extremity. The patient without significant scoliosis, kyphosis or lordosis. The patient does have some pain and discomfort that radiates down to the posterior portion of her back pain in the L5-S1 dermatomal distribution. IMPRESSION: 1. History of lumbar radiculopathy with L5-S1 dermatomal distribution. 2. Asthma. 3. Hypertension. 4. Hypoglycemia. 5. History of blood clots. 6. Coronary artery disease. 7. Cardiac infarct, 2008. 8. Deep venous thrombosis, 2002. 9. Scarlet fever. 10. Thyroid disease. 11. Stomach problems. 12. Peptic ulcer disease. RECOMMENDATIONS: We discussed treatment options with the patient. At this juncture, we will proceed with a Medrol Dosepak. The patient will take this medication for the next 7 days. She will also continue with Voltaren gel to the upper extremities 4 times daily. A script for Neurontin 100 mg 2 tablets in a.m., 1 tablet midday, and 1 at bedtime, OxyIR 10 mg q. 6 hours p.r.n. pain. The patient will call us if she has any concerns. We would like to thank you for letting us participate in her care. We hope she continues to improve. The patient will consider right hip injection in 10/2020. By: 0830 [id number]. Michele Garay MD /marcellus
== END ==
LOC: M.PC 09:37
PROVIDERS: ATTEND Anesthesiology Pain Medicine
DX: M54.5 Low back pain (principal); M54.9 Dorsalgia, unspecified; M25.562 Pain in left knee; M25.561 Pain in right knee

== ENCOUNTER 2020-10-15 12:45 | Emergency (ER) | payer OTHER, MEDICAID ==
[~2020-10-15] VITALS: Ht 165.1 cm; Wt 107.1 kg
[2020-10-15] MEDS ORDERED: ASA81BEC PO (12:50)
[2020-10-15 13:10] LABS: ABSOLUTE BASOPHILS 0.1 thou/uL (0.0-0.2); ABSOLUTE EOSINOPHILS 0.3 thou/uL (0.0-0.7); ABSOLUTE LYMPHOCYTES 2.3 thou/uL (0.8-5.3); ABSOLUTE MONOCYTES 0.8 thou/uL (0.0-1.2); ABSOLUTE NEUTROPHILS 4.4 thou/uL (1.6-8.1); BASOPHILS 0.8 %; EOSINOPHILS 4.3 %; HEMOGLOBIN 12.2 gm/dL (12.0-15.0); LYMPHOCYTES 29.4 %; MCH 27.6 pg (26.0-34.0); MCHC 32.1 g/dL (28.0-37.0); MONOCYTES 9.6 %; MPV 8.9 fl. (7.2-11.1); NUCLEATED RBCS 0 /100WBC; PLATELET COUNT* 216 thou/uL (150-400); POLYS 55.9 %; RBC 4.42 mil/uL (4.20-5.00); WBC 7.8 thou/uL (4.0-11.0)
[2020-10-15 13:20] LABS: CALCIUM 8.8 mg/dL (8.5-10.1)
[2020-10-15 13:25] LABS: APTT 21.7 Seconds (25.0-31.3); PROTIME 9.3 Seconds (9.20-11.50)
[2020-10-15 13:31] LABS: ALBUMIN 3.5 g/dL (3.4-5.0); TOTAL BILIRUBIN 0.2 mg/dL (<0.1-1.0); TOTAL PROTEIN 7.2 g/dL (6.4-8.2)
[2020-10-15 13:35] LABS: SALICYLATE < 2.8 mg/dL (2.8-20.0)
[2020-10-15 13:38] LABS: ACETAMINOPHEN < 2 ug/mL (10-30)
[2020-10-15 13:41] LABS: INR < 0.9
[2020-10-15 14:22] LABS: URINE BILIRUBIN NEGATIVE (Negative); URINE BLOOD NEGATIVE (Negative); URINE CLARITY CLEAR; URINE COLOR YELLOW; URINE GLUCOSE-RANDOM NEGATIVE (Negative); URINE KETONES NEGATIVE (Negative); URINE NITRITE-REFLEX NEGATIVE (Negative); URINE PROTEIN NEGATIVE (Negative); URINE SPECIFIC GRAVITY 1.015 (1.005-1.030); URINE UROBILINOGEN 0.2 E.U./dl (0.2-1.0)
[2020-10-15 14:24] LABS: URINE LEUKOCYTES-REFLEX 2+ (Negative)
[2020-10-15 14:39] LABS: BACTERIA-REFLEX 1-9 Few /HPF (None Seen); CASTS None Seen /LPF (None Seen); CRYSTALS None Seen /LPF (None Seen); MUCUS None Seen strn/LPF (None Seen); SQUAMOUS 4-10 Moderate /LPF (0-3); URINE RBC 3-10 Few /HPF (0-2); URINE WBC-REFLEX 0-5 Rare /HPF (0-5)
--- NOTE | 2020-10-15 15:35 | EKG ---
[place] [address] ELECTROCARDIOGRAM REPORT Name: ELINOR GUNDERSON Room: [facility]#: [id number] Admission: 10/15/20 Attend Phys: Discharge: Date of : 46 Date of Service: 10/15/20 1300 Report #: [id number] THIS REPORT FOR: //name// [facility] ED Test Date: 2020-10-15 Test Time: 13:00:33 Pat Name: ELINOR GUNDERSON Department: Room: Gender: F [employer]: [facility] : 1950 Requested By: Eloy St Order Number: [id number] MD: Cristobal Sands Measurements Intervals Dora Rate: 109 P: 37 [place]: 190 QRS: 7 QRSD: 87 T: 48 QT: 331 QTc: 446 Interpretive Statements Sinus tachycardia Atrial premature complex Minimal ST depression, lateral leads Compared to ECG 09/08/2019 10:36:31 Atrial premature complex(es) now present Sinus rhythm no longer present Ventricular premature complex(es) no longer present Electronically Signed On 10-15-2020 15:35:24 CHAIR INSTALLER by Cristobal Sands [email or web address] <ELECTRONICALLY SIGNED> By: Cristobal Sands MD, FACC 10/15/20 1535 1300 1300 Cristobal Sands MD, [facility] /EPI
[2020-10-15 16:00] VITALS: BP 166/83
== END 2020-10-15 16:01 | disposition home or self-care (01) ==
LOC: M.ERS 12:45
PROVIDERS: Family Medicine
DX: T40.2X1A Poisoning by other opioids, accidental (unintentional), initial encounter (principal); J45.909 Unspecified asthma, uncomplicated; I10 Essential (primary) hypertension; E03.9 Hypothyroidism, unspecified; M79.7 Fibromyalgia; Z90.710 Acquired absence of both cervix and uterus; Z90.89 Acquired absence of other organs; Z88.1 Allergy status to other antibiotic agents; Z88.8 Allergy status to other drugs, medicaments and biological substances; Y92.89 Other specified places as the place of occurrence of the external cause

== ENCOUNTER → 2020-10-23 | Outpatient (CLI) | payer OTHER, MEDICAID ==
[~2020-10-23] MED LIST changes: +ASA81BEC PO
== END | disposition home or self-care (01) ==
LOC: M.PC 10-16 10:40
PROVIDERS: ATTEND Anesthesiology Pain Medicine
DX: M54.16 Radiculopathy, lumbar region (principal); G89.29 Other chronic pain; I10 Essential (primary) hypertension; I25.10 Atherosclerotic heart disease of native coronary artery without angina pectoris; E03.9 Hypothyroidism, unspecified; J45.909 Unspecified asthma, uncomplicated; M79.7 Fibromyalgia; Z98.890 Other specified postprocedural states; Z90.710 Acquired absence of both cervix and uterus; Z79.899 Other long term (current) drug therapy; Z87.891 Personal history of nicotine dependence; Z86.718 Personal history of other venous thrombosis and embolism; Z79.01 Long term (current) use of anticoagulants; Z87.19 Personal history of other diseases of the digestive system

== ENCOUNTER → 2020-11-20 | Outpatient (CLI) | payer OTHER, MEDICAID | LOC: M.PC 10:38 | PROVIDERS: ATTEND Anesthesiology Pain Medicine | DX: M54.5 Low back pain (principal); J45.909 Unspecified asthma, uncomplicated; I10 Essential (primary) hypertension; E16.2 Hypoglycemia, unspecified; I25.10 Atherosclerotic heart disease of native coronary artery without angina pectoris; E04.9 Nontoxic goiter, unspecified; Z86.718 Personal history of other venous thrombosis and embolism; I21.9 Acute myocardial infarction, unspecified; K92.89 Other specified diseases of the digestive system; K27.3 Acute peptic ulcer, site unspecified, without hemorrhage or perforation; A38.9 Scarlet fever, uncomplicated; Z87.39 Personal history of other diseases of the musculoskeletal system and connective tissue; Z87.891 Personal history of nicotine dependence ==

== ENCOUNTER → 2021-02-12 | Outpatient (CLI) | payer OTHER, MEDICAID | END | disposition home or self-care (01) | LOC: M.PC 10:30 | PROVIDERS: ATTEND Anesthesiology Pain Medicine | DX: M54.16 Radiculopathy, lumbar region (principal); G89.29 Other chronic pain; J45.909 Unspecified asthma, uncomplicated; I10 Essential (primary) hypertension; I25.10 Atherosclerotic heart disease of native coronary artery without angina pectoris; E07.9 Disorder of thyroid, unspecified; E03.9 Hypothyroidism, unspecified; I25.2 Old myocardial infarction; M79.7 Fibromyalgia; Z98.890 Other specified postprocedural states; Z79.899 Other long term (current) drug therapy; Z86.718 Personal history of other venous thrombosis and embolism; Z79.01 Long term (current) use of anticoagulants; Z90.710 Acquired absence of both cervix and uterus; Z87.19 Personal history of other diseases of the digestive system; Z88.8 Allergy status to other drugs, medicaments and biological substances ==

== ENCOUNTER → 2021-03-14 | Outpatient (CLI) | payer OTHER, MEDICAID | LOC: M.PC 03-12 10:00 | PROVIDERS: ATTEND Anesthesiology Pain Medicine | DX: M54.16 Radiculopathy, lumbar region (principal); J45.909 Unspecified asthma, uncomplicated; I10 Essential (primary) hypertension; E16.2 Hypoglycemia, unspecified; I25.10 Atherosclerotic heart disease of native coronary artery without angina pectoris; I25.2 Old myocardial infarction; Z86.718 Personal history of other venous thrombosis and embolism; A38.9 Scarlet fever, uncomplicated; E07.9 Disorder of thyroid, unspecified; K27.9 Peptic ulcer, site unspecified, unspecified as acute or chronic, without hemorrhage or perforation ==

== ENCOUNTER → 2021-04-18 | Outpatient (CLI) | payer OTHER, MEDICAID ==
[~2021-04-18] MED LIST changes: +VITAMIN D PO; -VITAMIN D50000 UNIT PO; +VOLTAREN ARTHRI20 GM TOP
== END ==
LOC: M.PC 12:27
PROVIDERS: ATTEND Anesthesiology Pain Medicine
DX: M54.16 Radiculopathy, lumbar region (principal); J45.909 Unspecified asthma, uncomplicated; I10 Essential (primary) hypertension; I25.10 Atherosclerotic heart disease of native coronary artery without angina pectoris; E03.9 Hypothyroidism, unspecified; Z87.11 Personal history of peptic ulcer disease; Z90.710 Acquired absence of both cervix and uterus

== ENCOUNTER → 2021-05-16 | Outpatient (CLI) | payer OTHER, MEDICAID | LOC: M.PC 10:29 | PROVIDERS: ATTEND Anesthesiology Pain Medicine | DX: G89.29 Other chronic pain (principal); M54.5 Low back pain; I10 Essential (primary) hypertension; J45.909 Unspecified asthma, uncomplicated; E16.2 Hypoglycemia, unspecified; I25.2 Old myocardial infarction; I25.10 Atherosclerotic heart disease of native coronary artery without angina pectoris; A38.9 Scarlet fever, uncomplicated; E07.89 Other specified disorders of thyroid; K30 Functional dyspepsia; Z90.710 Acquired absence of both cervix and uterus; Z68.33 Body mass index [BMI] 33.0-33.9, adult; Z88.8 Allergy status to other drugs, medicaments and biological substances; Z79.891 Long term (current) use of opiate analgesic; Z79.899 Other long term (current) drug therapy; Z86.718 Personal history of other venous thrombosis and embolism; Z87.891 Personal history of nicotine dependence ==

== ENCOUNTER → 2021-06-13 | Outpatient (CLI) | payer OTHER, MEDICAID | END | disposition home or self-care (01) | LOC: M.PC 10:50 | PROVIDERS: ATTEND Anesthesiology Pain Medicine | DX: M54.16 Radiculopathy, lumbar region (principal); G89.29 Other chronic pain; I10 Essential (primary) hypertension; I25.10 Atherosclerotic heart disease of native coronary artery without angina pectoris; J45.909 Unspecified asthma, uncomplicated; I25.2 Old myocardial infarction; E03.9 Hypothyroidism, unspecified; Z98.890 Other specified postprocedural states; Z79.899 Other long term (current) drug therapy; Z86.718 Personal history of other venous thrombosis and embolism; Z79.01 Long term (current) use of anticoagulants; Z90.710 Acquired absence of both cervix and uterus; Z98.84 Bariatric surgery status; Z88.8 Allergy status to other drugs, medicaments and biological substances ==

== ENCOUNTER → 2021-08-13 | Outpatient (CLI) | payer OTHER, MEDICAID ==
[~2021-08-13] MED LIST changes: +ROXICODONE15 M1 PO
== END | disposition home or self-care (01) ==
LOC: M.PC 10:30
PROVIDERS: ATTEND Anesthesiology Pain Medicine
DX: M54.16 Radiculopathy, lumbar region (principal); G89.29 Other chronic pain; I10 Essential (primary) hypertension; I25.10 Atherosclerotic heart disease of native coronary artery without angina pectoris; J45.909 Unspecified asthma, uncomplicated; I25.2 Old myocardial infarction; M79.7 Fibromyalgia; E03.9 Hypothyroidism, unspecified; Z98.890 Other specified postprocedural states; Z79.899 Other long term (current) drug therapy; Z86.718 Personal history of other venous thrombosis and embolism; Z79.01 Long term (current) use of anticoagulants; Z90.710 Acquired absence of both cervix and uterus

== ENCOUNTER → 2021-08-22 | Outpatient (CLI) | payer OTHER, MEDICAID | LOC: M.RAD 08-19 13:30 | DX: Z12.31 Encounter for screening mammogram for malignant neoplasm of breast (principal); M85.88 Other specified disorders of bone density and structure, other site; M81.0 Age-related osteoporosis without current pathological fracture ==

== ENCOUNTER → 2021-09-17 | Outpatient (CLI) | payer OTHER, MEDICAID | LOC: M.PC 10:17 | PROVIDERS: ATTEND Anesthesiology Pain Medicine | DX: M54.16 Radiculopathy, lumbar region (principal); M54.17 Radiculopathy, lumbosacral region; J45.909 Unspecified asthma, uncomplicated; E16.1 Other hypoglycemia; I25.10 Atherosclerotic heart disease of native coronary artery without angina pectoris; E07.89 Other specified disorders of thyroid; A38.9 Scarlet fever, uncomplicated; K27.9 Peptic ulcer, site unspecified, unspecified as acute or chronic, without hemorrhage or perforation; I10 Essential (primary) hypertension; Z87.891 Personal history of nicotine dependence; E03.9 Hypothyroidism, unspecified; Z90.710 Acquired absence of both cervix and uterus; Z88.8 Allergy status to other drugs, medicaments and biological substances; Z88.1 Allergy status to other antibiotic agents; Z79.899 Other long term (current) drug therapy ==

== ENCOUNTER → 2021-10-31 | Outpatient (CLI) | payer OTHER, MEDICAID ==
[~2021-10-31] MED LIST changes: +CALCIUM500 MG PO
== END ==
LOC: M.PC 11:11
PROVIDERS: ATTEND Anesthesiology Pain Medicine
DX: M54.16 Radiculopathy, lumbar region (principal); J45.909 Unspecified asthma, uncomplicated; I10 Essential (primary) hypertension; E16.2 Hypoglycemia, unspecified; I25.10 Atherosclerotic heart disease of native coronary artery without angina pectoris; E07.89 Other specified disorders of thyroid; Z88.8 Allergy status to other drugs, medicaments and biological substances; Z79.899 Other long term (current) drug therapy

== ENCOUNTER → 2021-12-26 | Outpatient (CLI) | payer OTHER, MEDICAID | LOC: M.PC 11:10 | PROVIDERS: ATTEND Anesthesiology Pain Medicine | DX: I25.10 Atherosclerotic heart disease of native coronary artery without angina pectoris (principal); I10 Essential (primary) hypertension; K27.9 Peptic ulcer, site unspecified, unspecified as acute or chronic, without hemorrhage or perforation; E16.2 Hypoglycemia, unspecified; I82.402 Acute embolism and thrombosis of unspecified deep veins of left lower extremity; A38.9 Scarlet fever, uncomplicated; E07.9 Disorder of thyroid, unspecified; K92.9 Disease of digestive system, unspecified; J45.909 Unspecified asthma, uncomplicated; Z79.899 Other long term (current) drug therapy; Z88.8 Allergy status to other drugs, medicaments and biological substances ==